=== PATIENT | male | born 1975 | race Hispanic/Latino ===

== ENCOUNTER 2017-10-14 11:05 | Emergency (ER) | payer OTHER, SELFPAY ==
--- NOTE | 2017-10-14 12:16 | RAD REPORT ---
EXAM DESCRIPTION: CT - Ct Stroke Brain Wo Cont - 10/14/2017 12:06 pm CLINICAL HISTORY: Left arm numbness and weakness, stroke-like symptoms, history of prior CVA CLINICAL HISTORY: None. TECHNIQUE: Axial 5 millimeter thick images of the head were obtained without IV contrast. All CT scans are performed using dose optimization technique as appropriate and may include automated exposure control or mA/KV adjustment according to patient size. FINDINGS: No intracranial hemorrhage, mass, or cerebral edema. No acute cortical based infarction se en. No cortical edema or sulcal effacement. Diminished attenuation is seen in the left basal ganglia head of the caudate region from old CVA. A small area of diminished attenuation is present adjacent t o the frontal horn right lateral ventricle. No extra-axial fluid collections. Akins matter-white stephane er differentiation is preserved. Visualized portions of the mastoid air cells, paranasal sinuses, and orbits are unremarkable. Findings telephoned to the referring physician 12:11 p.m. IMPRESSION: No intracranial hemorrhage. No acute cortical based infarction identifiable. Old infarction changes are present in the bilateral basal ganglia head of the caudate regions. Ongoing clinical concerns for nonhemorrhagic CVA could be addressed with MR imaging.
[2017-10-14 12:47] LABS: Absolute Lymphocytes (CBC) 2.5 K/uL (0.7-4.9); Absolute Monocytes 0.7 K/uL (0.1-1.3); Absolute Neutrophil 5.7 K/uL (1.8-8.0); Basophils % 0.4 % (0-1.3); Eosinophils % 2.7 % (0-4.4); Hematocrit 43.8 % (39.6-49.0); Lymphocytes % 27.4 % (15.3-44.8); MCH 29.1 pg (27.0-35.0); MPV 11.4 fL (7.6-11.3); Monocytes % 7.5 % (3.3-12.3); RBC Red Blood Cell Count 4.92 M/uL (4.33-5.43)
--- NOTE | 2017-10-14 13:08 | RAD REPORT ---
EXAM DESCRIPTION: RAD - Chest Single View - 10/14/2017 12:50 pm CLINICAL HISTORY: Stroke chest film COMPARISON: March 2016 TECHNIQUE: AP portable chest image was obtained 1242 hours . FINDINGS: No failure, mass or focal infiltrate. Lung markings are similar to comparison. Heart and v asculature are normal. No measurable pleural effusion and no pneumothorax. No gross bony abnormality seen. No acute aortic findings suspected. IMPRESSION: No acute cardiopulmonary process. No significant interval change.
--- NOTE | 2017-10-14 13:19 | EKG ---
Test Date: 2017-10-14 Test Time: 12:12:22 Cotton Expert: CHAVEZ MEASUREMENT RESULTS: Intervals: Rate: 66 [place]: 186 QRSD: 88 QT: 390 QTc: 408 [place]: P: 42 [place]: 186 QRS: -10 T: 33 INTERPRETIVE STATEMENTS: Normal sinus rhythm Normal ECG Compared to ECG 03/27/2016 11:34:45 No significant changes Electronically Signed On 10-14-17 13:18:44 CDT by Giovanny Koch
[2017-10-14 13:38] LABS: Urine Blood NEGATIVE (NEG); Urine Glucose NEGATIVE (NEG); Urine Protein NEGATIVE (NEG); Urine Specific Gravity <1.005 (1.005-1.030)
--- NOTE | 2017-10-14 13:43 | ER ---
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 ;Left arm weakness Presentation: 10/14 11:15 Presenting complaint: Patient states: Saturday my left arm went numb and had numbness iw in fingertips, has had previous CVA X 4 years ago and TIA a year ago, states left arm has not been the same since Saturday, has had problem gripping stuff since Saturday. Transition of care: patient was not received from another setting of care. Onset of symptoms was October 09, 2017. Risk Assessment: Do you want to hurt yourself or someone else? Patient reports no desire to harm self or others. Initial Sepsis Screen: Does the patient meet any 2 criteria? No. Patient's initial sepsis screen is negative. Does the patient have a suspected source of infection? No. Patient's initial sepsis screen is negative. Care prior to arrival: None. 11:15 Method Of Arrival: Ambulatory iw 11:15 Acuity: FAISAL 3 iw Triage Assessment: 19:41 General: Appears in no apparent distress. uncomfortable, Behavior is calm, cooperative, ch appropriate for age. Historical: - Allergies: 11:20 No Known Allergies; iw - Home Meds: 11:20 Plavix 75 mg Oral tab 1 tab once daily [Active]; atorvastatin oral oral [Active]; iw Vitamin B-12 Oral [Active]; Vitamin B-6 Oral [Active]; Folic Acid Oral [Active]; vitamin E Oral [Active]; Vitamin C Oral [Active]; lisinopril 10 mg Oral tab 2 tabs once daily [Active]; - PMHx: 11:20 CVA x3; Hypertension; TIA; iw - PSHx: 11:20 right knee; left ankle; iw - Immunization history:: Adult Immunizations not up to date. - Social history:: Smoking status: Patient/guardian denies using tobacco. - Ebola Screening: : Patient negative for fever greater than or equal to 101.5 degrees Fahrenheit, and additional compatible Ebola Virus Disease symptoms Patient denies exposure to infectious person Patient denies travel to an Ebola-affected area in the 21 days before illness onset No symptoms or risks identified at this time. Screenin:00 Abuse screen: Denies threats or abuse. Denies injuries from another. Nutritional ch screening: No deficits noted. Tuberculosis screening: No symptoms or risk factors identified. Fall Risk None identified. Assessment: 11:20 General: Appears in no apparent distress. comfortable, Behavior is calm, cooperative, ch appropriate for age. 11:20 Pain: Denies pain. Neuro: Level of Consciousness is awake, alert, obeys commands, ch Oriented to person, place, time, situation, Entry Level Programmer are equal bilaterally Moves all extremities. Full function Gait is steady, Speech is normal, Facial symmetry appears normal, Facial symmetry: tongue is midline, Pupils are PERRLA, Reports weakness in left hand. Respiratory: Airway is patent is compromised Trachea midline Respiratory effort is even, unlabored, Respiratory pattern is regular. GI: No signs and/or symptoms were reported involving the gastrointestinal system. Abdomen is flat, non-distended, Bowel sounds present X 4 quads. Abd is soft and non tender X 4 quads. Derm: Skin is pink, warm \T\ dry. Musculoskeletal: Circulation, motion, and sensation intact. Capillary refill < 3 seconds, in bilateral fingers. toes. Range of motion: intact in all extremities. 13:00 Reassessment: Patient appears in no apparent distress at this time. No changes from previously documented assessment. Patient and/or family updated on plan of care and expected duration. Pain level reassessed. Patient is alert, oriented x 3, equal unlabored respirations, skin warm/dry/pink. 14:00 Reassessment: Patient appears in no apparent distress at this time. No changes from previously documented assessment. Patient and/or family updated on plan of care and expected duration. Pain level reassessed. Patient is alert, oriented x 3, equal unlabored respirations, skin warm/dry/pink. Patient denies pain at this time. Patient states feeling better. Vital Signs: 11:20 BP 138 / 86; Pulse 73; Resp 16 S; Temp 97.9; Pulse Ox 97% on R/A; Weight 113.4 kg; iw Height 6 ft. 1 in. (185.42 cm); Pain 0/10; 14:00 BP 116 / 68; Pulse 71; Resp 16; Temp 98.3; Pulse Ox 99% on R/A; Pain 0/10; ch 11:20 Body Mass Index 32.98 (113.40 kg, 185.42 cm) ED Course: 11:10 Patient arrived in ED. mr 11:10 None, None is Private Physician. mr 11:19 Triage completed. iw 11:20 Arm band placed on. iw 11:22 Perry Benítez MD is Attending Physician. ps1 12:06 CT Stroke Brain w/o Contrast In Process Unspecified. EDMS 12:20 Fidelia Flores, RN is Primary Nurse. ch 12:26 EKG done, by electrical technology instructor. reviewed by Perry Benítez MD. at1 12:44 X-ray completed. Portable x-ray completed in exam room. Patient tolerated procedure kp1 well. 12:45 Stroke CXR 1 View In Process Unspecified. EDMS 13:13 Inserted saline lock: 20 gauge in right antecubital area, using aseptic technique. ag Blood collected. 13:15 Urine Microscopic Only Sent. ag 14:00 Patient has correct armband on for positive identification. Placed in gown. Bed in low ch position. Call light in reach. Side rails up X 1. Adult w/ patient. groundwater monitoring technician on. Pulse ox on. NIBP on. Warm blanket given. 14:10 No apparent distress. Resting quietly. ch 14:10 No provider procedures requiring assistance completed. IV discontinued, intact, ch bleeding controlled, No redness/swelling at site. Pressure dressing applied. Administered Medications: No medications were administered Outcome: 13:42 Discharge ordered by . ps1 14:10 Discharged to home ambulatory, with family. ch 14:10 Condition: stable 14:10 Discharge instructions given to patient, family, Instructed on discharge instructions, follow up and referral plans. Demonstrated understanding of instructions, follow-up care. 14:14 Patient left the ED. dm5 Signatures: Dispatcher [employer] EDMS Fidelia Flores, RN KELSIE Shannon Guerra, RN RN dm5 Chikis Marx, Aisha, RN RN Violeta dorado, residence hall director EKG Tat1 James, Alayna ag Knapp, Pratibha kp1 Perry Benítez MD MD ps1
--- NOTE | 2017-10-14 13:43 | EDPHYS ---
Physician Documentation [facility] Name: Bartolo Phelps Age: 42 yrs Sex: Male : 1975 Arrival Date: 10/14/2017 Time: 11:10 Bed 14 Private MD: None, None ED Physician Perry Benítez HPI: 10/14 13:43 This 42 yrs old Male presents to ER via Ambulatory with complaints of Numbness ps1 Of Arm. 13:43 The patient or guardian complains of weakness, previous CVA. The complaints affect the ps1 left hand. Pt with history of CVA 4 years ago. Under care of neurologist at [facility]. 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 He states that he went back to work and was recently exposed to heat as it was hot > 100 degrees ambient in [place] the last couple of days. He started to have increased weakness in the affected hand that he described as 20% function which started 3 days ago. He states that his symptoms have got better since and has nearly returned to his baseline. . Historical: - Allergies: 11:20 No Known Allergies; iw - Home Meds: 11:20 Plavix 75 mg Oral tab 1 tab once daily [Active]; atorvastatin oral oral [Active]; iw Vitamin B-12 Oral [Active]; Vitamin B-6 Oral [Active]; Folic Acid Oral [Active]; vitamin E Oral [Active]; Vitamin C Oral [Active]; lisinopril 10 mg Oral tab 2 tabs once daily [Active]; - PMHx: 11:20 CVA x3; Hypertension; TIA; iw - PSHx: 11:20 right knee; left ankle; iw - Immunization history:: Adult Immunizations not up to date. - Social history:: Smoking status: Patient/guardian denies using tobacco. - Ebola Screening: : Patient negative for fever greater than or equal to 101.5 degrees Fahrenheit, and additional compatible Ebola Virus Disease symptoms Patient denies exposure to infectious person Patient denies travel to an Ebola-affected area in the 21 days before illness onset No symptoms or risks identified at this time. ROS: 13:43 Constitutional: Negative for fever, chills, and weight loss, Eyes: Negative for injury, ps1 pain, redness, and discharge, ENT: Negative for injury, pain, and discharge, Cardiovascular: Negative for chest pain, palpitations, and edema, Respiratory: Negative for shortness of breath, cough, wheezing, and pleuritic chest pain, Abdomen/GI: Negative for abdominal pain, nausea, vomiting, diarrhea, and constipation, Back: Negative for injury and pain, MS/Extremity: Negative for injury and deformity, Skin: Negative for injury, rash, and discoloration. 13:43 Neuro: Positive for weakness, of the left hand. Exam: 13:43 Constitutional: This is a well developed, well nourished patient who is awake, alert, ps1 and in no acute distress. Head/Face: Normocephalic, atraumatic. Eyes: Pupils equal round and reactive to light, extra-ocular motions intact. Lids and lashes normal. Conjunctiva and sclera are non-icteric and not injected. ENT: Nares patent. No nasal discharge, no septal abnormalities noted. Tympanic membranes are normal and external auditory canals are clear. Oropharynx with no redness, swelling, or masses, exudates, or evidence of obstruction, uvula midline. Mucous membranes moist. Chest/axilla: Normal chest wall appearance and motion. Nontender with no deformity. No lesions are appreciated. Cardiovascular: Regular rate and rhythm. No gallops, murmurs, or rubs. Normal PMI, no JVD. No pulse deficits. Respiratory: Lungs have equal breath sounds bilaterally, clear to auscultation and percussion. No rales, rhonchi or wheezes noted. No increased work of breathing, no retractions or nasal flaring. Abdomen/GI: Soft, non-tender, with normal bowel sounds. No distension or tympany. No guarding or rebound. No evidence of tenderness throughout. Skin: Warm, dry with normal turgor. Normal color with no rashes, no lesions, and no evidence of cellulitis. MS/ Extremity: Pulses equal, no cyanosis. Neurovascular intact. Full, normal range of motion. Neuro: Awake and alert, GCS 15, oriented to person, place, time, and situation. Cranial nerves II-XII grossly intact. Sensory grossly intact. 13:43 Neuro: Motor: moves all fours, has weakness in left hand as compared to right. . Vital Signs: 11:20 BP 138 / 86; Pulse 73; Resp 16 S; Temp 97.9; Pulse Ox 97% on R/A; Weight 113.4 kg; iw Height 6 ft. 1 in. (185.42 cm); Pain 0/10; 14:00 BP 116 / 68; Pulse 71; Resp 16; Temp 98.3; Pulse Ox 99% on R/A; Pain 0/10; ch 11:20 Body Mass Index 32.98 (113.40 kg, 185.42 cm) iw MDM: 11:47 Patient medically screened. ps1 13:48 Data reviewed: vital signs, nurses notes, lab test result(s), radiologic studies. ED ps1 course: has CT findings consistent with his history. His subjective deficits are within the same distribution of his previous CVA. He is outside the window for intervention. He is to see his neurologist for further diagnostic workup including MRI outpatient. This seems consistent with reexpression of his previous stroke from physiologic stress. This may be a subacute finding however and further diagnostic workup with his neurologist is recommended. Labs and imaging negative for acute findings otherwise. . 10/14 11:46 Order name: Basic Metabolic Panel; Complete Time: 13:03 ps1 10/14 11:46 Order name: CBC with Diff; Complete Time: 13:03 ps1 10/14 11:46 Order name: Urine Microscopic Only; Complete Time: 13:52 ps1 10/14 11:46 Order name: CT Stroke Brain w/o Contrast; Complete Time: 12:22 ps1 10/14 11:46 Order name: Stroke CXR 1 View; Complete Time: 13:18 ps1 10/14 13:24 Order name: Urine Dipstick--Ancillary (enter results); Complete Time: 13:40 bd 10/14 11:46 Order name: EKG; Complete Time: 11:47 ps1 10/14 11:46 Order name: Accucheck; Complete Time: 13:15 ps1 10/14 11:46 Order name: Cardiac monitoring; Complete Time: 13:15 ps1 10/14 11:46 Order name: EKG - Nurse/Tech ps1 10/14 11:46 Order name: IV Saline Lock; Complete Time: 13:15 ps1 10/14 11:46 Order name: Labs collected and sent; Complete Time: 13:14 ps1 10/14 11:46 Order name: NPO; Complete Time: 13:14 ps1 10/14 11:46 Order name: O2 Per Protocol; Complete Time: 13:14 ps1 10/14 11:46 Order name: O2 Sat Monitoring; Complete Time: 13:14 ps1 10/14 11:46 Order name: Stroke Swallow Screen ps1 10/14 11:46 Order name: Urine Dipstick-Ancillary (obtain specimen); Complete Time: 13:15 ps1 Administered Medications: No medications were administered Disposition: 10/14/17 13:42 Discharged to Home. 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 , Left arm weakness. - Condition is Stable. - Discharge Instructions: Stroke Prevention, [place]. - Medication Reconciliation Form, Thank You Letter, Antibiotic Education, Prescription Opioid Use form. - Follow up: Private Physician; When: this week; Reason: Further diagnostic work-up, Recheck today's complaints, Re-evaluation by your physician, Your Neurologist. Follow up: Emergency Department; When: As needed; Reason: Worsening of condition. Signatures: Dispatcher [employer] EDShannon Mehta RN RN dm5 Aisha Ruiz RN RN iw Perry Benítez MD MD ps1 Corrections: (The following items were deleted from the chart) 14:14 13:42 10/14/2017 13:42 Discharged to Home. Impression: Reexpression phenomena from dm5 previous CVA. ; Left arm weakness. Condition is Stable. Forms are Medication Reconciliation Form, Thank You Letter, Antibiotic Education, Prescription Opioid Use. Follow up: Private Physician; When: this week; Reason: Further diagnostic work-up, Recheck today's complaints, Re-evaluation by your physician, Your Neurologist. Follow up: Emergency Department; When: As needed; Reason: Worsening of condition. ps1
[2017-10-14 13:49] LABS: Urine Bacteria NONE SEEN /HPF (NONE SEEN); Urine Culture Reflex Order NOT NEEDED; Urine RBC NONE SEEN /HPF (NONE SEEN)
[2017-10-14 14:17] VITALS: BP 138/86; TEMP 97.9; O2SAT 97
== END 2017-10-14 14:14 | disposition home or self-care (01) ==
LOC: ER 11:05
DX: I69.354 Hemiplegia and hemiparesis following cerebral infarction affecting left non-dominant side (principal); I10 Essential (primary) hypertension
CPT/HCPCS: 36415; 70450; 71045; 80048; 81003; 81015; 85025; 93005; 99284

== ENCOUNTER 2018-01-17 14:52 | Emergency (ER) | payer OTHER ==
[2018-01-17] MEDS ORDERED: NA CHLORIDE 0.9% 1,000 ML ONE (15:25)
[2018-01-17] MEDS ORDERED: DIPHENHYDRAMINE 25 MG TAB/CAP ONE (15:25)
[2018-01-17] MEDS ORDERED: DEXAMETHASONE 4 MG/ML VIAL ONE (15:25)
[2018-01-17] MEDS ORDERED: FAMOTIDINE 20 MG/2 ML VIAL IV ONE (15:25)
--- NOTE | 2018-01-17 17:21 | EDPHYS ---
Physician Documentation [facility] Name: Bartolo Phelps Age: 42 yrs Sex: Male : 1975 Arrival Date: 01/17/2018 Time: 14:53 Bed 6 Private MD: ED Physician Holden Thibodeaux HPI: 01/17 15:04 This 42 yrs old Male presents to ER via Ambulatory with complaints of Bee jmm Sting. 15:04 The patient was bitten on the left arm. Onset: The symptoms/episode began/occurred jmm acutely, 15 minute(s) ago. Animal information: wasp. Associated signs and symptoms: Pertinent positives: erythema at site, swelling at site. This is a 42 year old male with a history of CVA that presents to the ED with left arm erythema dn erythema to the chest following an insect sting. Patient states he was stung by a wasp. patient denies vomiting or shortness of breath. Historical: - Allergies: 15:05 Bees; aj - Home Meds: 15:05 gabapentin oral oral [Active]; Plavix Oral [Active]; Lisinopril Oral [Active]; aj - PMHx: 15:05 CVA x3; Hypertension; TIA; aj - PSHx: 15:05 right knee; left ankle; aj - Immunization history:: Adult Immunizations up to date. - Social history:: Smoking status: Patient uses tobacco products, chewing tobacco. - Ebola Screening: : Patient negative for fever greater than or equal to 101.5 degrees Fahrenheit, and additional compatible Ebola Virus Disease symptoms Patient denies exposure to infectious person Patient denies travel to an Ebola-affected area in the 21 days before illness onset No symptoms or risks identified at this time. ROS: 15:05 Constitutional: Negative for fever, chills, and weight loss. jmm 15:05 Cardiovascular: Negative for chest pain, palpitations, and edema, Respiratory: Negative jm for shortness of breath, cough, wheezing, and pleuritic chest pain, Abdomen/GI: Negative for abdominal pain, nausea, vomiting, diarrhea, and constipation. 15:05 Constitutional: 15:05 Skin: Positive for rash, swelling. 15:05 All other systems are negative. Exam: 15:05 Head/Face: atraumatic. jmm 15:05 Constitutional: The patient appears in no acute distress, alert, awake. 15:05 ENT: Posterior pharynx: is normal, airway is patent, No pharyngeal edema appreciated. 15:05 Neck: ROM/movement: is normal. 15:05 Chest/axilla: Inspection: rash, of the left clavicle, anterior aspect of left upper chest and left breast 15:05 Cardiovascular: Rate: normal, Rhythm: regular, Pulses: no pulse deficits are appreciated. 15:05 Respiratory: the patient does not display signs of respiratory distress, Respirations: normal, Breath sounds: are clear throughout. 15:05 Abdomen/GI: Inspection: abdomen appears normal, Bowel sounds: normal, Palpation: abdomen is soft and non-tender. 15:05 Musculoskeletal/extremity: ROM: intact in all extremities. 15:05 Skin: erythema noted to the left arm and the chest. 15:05 Neuro: Orientation: is normal, Mentation: is normal, Memory: is normal. 15:05 Psych: Behavior/mood is pleasant, cooperative. Vital Signs: 15:05 BP 135 / 75; Pulse 92; Resp 16; Temp 98.1; Pulse Ox 96% on R/A; Weight 108.86 kg; aj Height 6 ft. 1 in. (185.42 cm); 15:20 BP 149 / 90; Pulse 65; Resp 18; Temp 98.5; Pulse Ox 99% on R/A; Pain 5/10; ch 16:25 BP 140 / 78; Pulse 72; Resp 15; Temp 98.8; Pulse Ox 99% on R/A; Pain 0/10; ch 16:54 BP 123 / 63; Pulse 74; Resp 15; Temp 98.3; Pulse Ox 99% on R/A; Pain 0/10; ch 15:05 Body Mass Index 31.66 (108.86 kg, 185.42 cm) aj MDM: 15:04 Patient medically screened. [facility] 15:05 Data reviewed: vital signs, nurses notes. [facility] 17:19 Response to treatment: the patient's symptoms have markedly improved after treatment. [facility] 18:39 Counseling: I had a detailed discussion with the patient and/or guardian regarding: the [facility] historical points, exam findings, and any diagnostic results supporting the discharge/admit diagnosis, the presence of at least one elevated blood pressure reading (>120/80) during this emergency department visit, radiology results, the need for outpatient follow up, to return to the emergency department if symptoms worsen or persist or if there are any questions or concerns that arise at home. 01/17 15:05 Order name: Saline Lock; Complete Time: 15:32 [facility] Administered Medications: 15:20 Drug: Decadron - Dexamethasone 10 mg Route: IVP; Site: right forearm; ch 15:39 Follow up: Response: No adverse reaction; Marked relief of symptoms ch 15:24 Drug: Pepcid 20 mg Route: IVP; Site: right forearm; ch 15:39 Follow up: Response: No adverse reaction ch 15:26 Drug: Benadryl 50 mg Route: PO; ch 15:39 Follow up: Response: No adverse reaction ch 15:30 Drug: NS 0.9% 1000 ml Route: IV; Rate: 1 bolus; Site: right forearm; 16:00 Follow up: IV Status: Completed infusion; IV Intake: 1000ml ch Disposition: 18:18 Co-signature as Attending Physician, Holden Thibodeaux MD I agree with the assessment and kdr plan of care. Disposition: 01/17/18 17:20 Discharged to Home. Impression: Wasp Sting. - Condition is Stable. - Discharge Instructions: Bee, Wasp, or Hornet Sting, Adult. - Prescriptions for Cephalexin 500 mg Oral Capsule - take 1 capsule by ORAL route every 6 hours for 5 days; 20 capsule. Prednisone 20 mg Oral Tablet - take 3 tablet by ORAL route once daily for 5 days; 15 tablet. EpiPen 0.3 mg Injection auto- injector - inject 1 pen by INTRAMUSCULAR route as directed Inject into the outer portion of the thigh, through clothing if necessary. Indicated in the emergency treatment of allergic reactions; 1 unit. - Medication Reconciliation Form, Thank You Letter, Antibiotic Education, Prescription Opioid Use form. - Follow up: Private Physician; When: 2 - 3 days; Reason: Recheck today's complaints, Continuance of care, Re-evaluation by your physician. Signatures: Fidelia Flores RN RN ch Myers, Amanda, RN RN aj Rittger, Kevin, MD MD kdr Mickail, Joel, PA PA jmm Corrections: (The following items were deleted from the chart) 16:24 15:04 This is a 42 year old male with a history of CVA that presents to the ED with jmm left arm erythema dn erythema to the chest following an insect sting. Patient states he was stung by a wasp. chioma 17:37 17:20 01/17/2018 17:20 Discharged to Home. Impression: Wasp Sting. Condition is Stable. ch Forms are Medication Reconciliation Form, Thank You Letter, Antibiotic Education, Prescription Opioid Use. Follow up: Private Physician; When: 2 - 3 days; Reason: Recheck today's complaints, Continuance of care, Re-evaluation by your physician. chioma
--- NOTE | 2018-01-17 17:21 | ER ---
Nurse's Notes [facility] Name: Bartolo Phelps Age: 42 yrs Sex: Male : 1975 Arrival Date: 01/17/2018 Time: 14:53 Bed 6 Private MD: Diagnosis: Wasp Sting Presentation: 01/17 15:03 Presenting complaint: Patient states: Stung by a wasp on left posterior upper arm just aj [employer]. Transition of care: patient was not received from another setting of care. Onset: The symptoms/episode began/occurred acutely. Anaphylaxis evaluation, no signs or symptoms of anaphylaxis were noted. Onset of symptoms was January 17, 2018. Risk Assessment: Do you want to hurt yourself or someone else? Patient reports no desire to harm self or others. Initial Sepsis Screen: Does the patient meet any 2 criteria? No. Patient's initial sepsis screen is negative. Does the patient have a suspected source of infection? No. Patient's initial sepsis screen is negative. Care prior to arrival: None. 15:03 Method Of Arrival: Ambulatory 15:03 Acuity: FAISAL 2 aj Triage Assessment: 15:05 General: Appears in no apparent distress. comfortable, Behavior is calm, cooperative, aj appropriate for age. Pain: Complains of pain in left tricep. Neuro: Level of Consciousness is awake, alert, obeys commands, Oriented to person, place, time, situation, Appropriate for age. Respiratory: Airway is patent Respiratory effort is even, unlabored, Respiratory pattern is regular, symmetrical. Derm: Skin is intact, is healthy with good turgor, Skin is pink, warm \T\ dry. normal. Injury Description: Bite sustained to left tricep caused by a wasp, is from insect was sustained less than 30 minutes ago. Historical: - Allergies: 15:05 Bees; aj - Home Meds: 15:05 gabapentin oral oral [Active]; Plavix Oral [Active]; Lisinopril Oral [Active]; aj - PMHx: 15:05 CVA x3; Hypertension; TIA; aj - PSHx: 15:05 right knee; left ankle; aj - Immunization history:: Adult Immunizations up to date. - Social history:: Smoking status: Patient uses tobacco products, chewing tobacco. - Ebola Screening: : Patient negative for fever greater than or equal to 101.5 degrees Fahrenheit, and additional compatible Ebola Virus Disease symptoms Patient denies exposure to infectious person Patient denies travel to an Ebola-affected area in the 21 days before illness onset No symptoms or risks identified at this time. Screenin:20 Abuse screen: Denies threats or abuse. Denies injuries from another. Nutritional ch screening: No deficits noted. Tuberculosis screening: No symptoms or risk factors identified. Fall Risk None identified. Assessment: 15:20 General: Appears in no apparent distress. comfortable, Behavior is cooperative, ch appropriate for age, anxious. Pain: Complains of pain in left bicep and left tricep Pain currently is 5 out of 10 on a pain scale. Pain began suddenly. Neuro: No deficits noted. Cardiovascular: Heart tones S1 S2 present. Respiratory: Reports pt states he feels like his throat and mouth are scratchy. Airway is patent Respiratory effort is even, unlabored, Breath sounds are clear bilaterally. 15:20 GI: No signs and/or symptoms were reported involving the gastrointestinal system. Derm: Skin is pink, warm \T\ dry. pt has area of redness and swelling approx 25 cm diameter to L arm. Musculoskeletal: No signs and/or symptoms reported regarding the musculoskeletal system. 16:25 Reassessment: Patient appears in no apparent distress at this time. Patient and/or family updated on plan of care and expected duration. Pain level reassessed. Patient is alert, oriented x 3, equal unlabored respirations, skin warm/dry/pink. pt still has redness to L upper arm, and redness to chest. no s/s of distress. Patient states feeling better. Patient states symptoms have improved. 17:33 Reassessment: Patient appears in no apparent distress at this time. No changes from previously documented assessment. Patient and/or family updated on plan of care and expected duration. Pain level reassessed. Patient is alert, oriented x 3, equal unlabored respirations, skin warm/dry/pink. Patient denies pain at this time. Patient states feeling better. Patient states symptoms have improved. Vital Signs: 15:05 BP 135 / 75; Pulse 92; Resp 16; Temp 98.1; Pulse Ox 96% on R/A; Weight 108.86 kg; aj Height 6 ft. 1 in. (185.42 cm); 15:20 BP 149 / 90; Pulse 65; Resp 18; Temp 98.5; Pulse Ox 99% on R/A; Pain 5/10; ch 16:25 BP 140 / 78; Pulse 72; Resp 15; Temp 98.8; Pulse Ox 99% on R/A; Pain 0/10; ch 16:54 BP 123 / 63; Pulse 74; Resp 15; Temp 98.3; Pulse Ox 99% on R/A; Pain 0/10; ch 15:05 Body Mass Index 31.66 (108.86 kg, 185.42 cm) ED Course: 14:53 Patient arrived in ED. sb2 15:01 Eric Leal PA is PHCP. jm 15:01 Holden Thibodeaux MD is Attending Physician. jmm 15:04 Triage completed. aj 15:05 Arm band placed on left wrist. Patient placed in an exam room. aj 15:17 Fidelia Flores, RN is Primary Nurse. ch 15:20 Patient has correct armband on for positive identification. Bed in low position. Call ch light in reach. Side rails up X 1. Adult w/ patient. Pulse ox on. NIBP on. Warm blanket given. 15:20 No provider procedures requiring assistance completed. Inserted saline lock: 20 gauge ch in right forearm, using aseptic technique. 17:33 No apparent distress. Resting quietly. ch 17:33 IV discontinued, intact, bleeding controlled, No redness/swelling at site. Pressure ch dressing applied. Administered Medications: 15:20 Drug: Decadron - Dexamethasone 10 mg Route: IVP; Site: right forearm; ch 15:39 Follow up: Response: No adverse reaction; Marked relief of symptoms ch 15:24 Drug: Pepcid 20 mg Route: IVP; Site: right forearm; ch 15:39 Follow up: Response: No adverse reaction ch 15:26 Drug: Benadryl 50 mg Route: PO; ch 15:39 Follow up: Response: No adverse reaction ch 15:30 Drug: NS 0.9% 1000 ml Route: IV; Rate: 1 bolus; Site: right forearm; ch 16:00 Follow up: IV Status: Completed infusion; IV Intake: 1000ml ch Intake: 16:00 IV: 1000ml; Total: 1000ml. ch Outcome: 17:20 Discharge ordered by . [facility] 17:33 Discharged to home ambulatory, with family. 17:33 Condition: stable 17:33 Discharge instructions given to patient, family, Instructed on discharge instructions, follow up and referral plans. medication usage, Demonstrated understanding of instructions, follow-up care, medications, Prescriptions given X 3. 17:37 Patient left the ED. Signatures: Fidelia Flores, RN Vioelta Angulo ch, RN RN aj Mickail, Joel, PA PA jmm Billeau, Sheri sb2
[2018-01-17 18:04] VITALS: O2SAT 99
[2018-01-17 18:08] VITALS: BP 123/63; TEMP 98.3
== END 2018-01-17 17:37 | disposition home or self-care (01) ==
LOC: ER 14:52
DX: R21 Rash and other nonspecific skin eruption (principal); W57.XXXA Bitten or stung by nonvenomous insect and other nonvenomous arthropods, initial encounter; Y93.9 Activity, unspecified; Y92.9 Unspecified place or not applicable; I10 Essential (primary) hypertension; Z79.01 Long term (current) use of anticoagulants; Z86.73 Personal history of transient ischemic attack (TIA), and cerebral infarction without residual deficits; Z91.030 Bee allergy status
CPT/HCPCS: 96374; 96375; 99284; J7030

== ENCOUNTER 2018-05-05 22:11 | Emergency (ER) | payer OTHER ==
[2018-05-05] MEDS ORDERED: HYDROCODONE/APAP 7.5/325 MG TAB ONE (23:07)
--- NOTE | 2018-05-05 23:47 | EDPHYS ---
Physician Documentation [facility] Name: Bartolo Phelps Age: 43 yrs Sex: Male : 1975 Arrival Date: 05/05/2018 Time: 22:14 Bed 13 Private MD: ED Physician Duglas Dela Cruz HPI: 05/05 22:52 This 43 yrs old Male presents to ER via Wheelchair with complaints of Fall pkl Injury, Foot Injury. 22:52 The patient presents with an injury. The complaints affect the right foot. Context: pkl resulted from the patient falling, Patient fell 2 days ago and again tonight injuring the right foot. Historical: - Allergies: 22:19 Bees; jb4 - Home Meds: 22:19 gabapentin Oral [Active]; lisinopril Oral [Active]; Plavix Oral [Active]; jb4 - PMHx: 22:19 CVA x3; Hypertension; TIA; jb4 - PSHx: 22:19 None; jb4 - Immunization history:: Adult Immunizations up to date, Flu vaccine is up to date. - Social history:: Smoking status: Patient uses tobacco products, chewing tobacco, Patient uses alcohol, but reports only rare drinking. - Ebola Screening: : No symptoms or risks identified at this time. ROS: 22:52 MS/extremity: Positive for injury or acute deformity, pain, of the right foot. pkl 22:52 Eyes: Negative for injury, pain, redness, and discharge, ENT: Negative for injury, pain, and discharge, Neck: Negative for injury, pain, and swelling, Cardiovascular: Negative for chest pain, palpitations, and edema, Respiratory: Negative for shortness of breath, cough, wheezing, and pleuritic chest pain, Abdomen/GI: Negative for abdominal pain, nausea, vomiting, diarrhea, and constipation, Back: Negative for injury and pain, : Negative for injury, bleeding, discharge, and swelling, Skin: Negative for injury, rash, and discoloration, Neuro: Negative for headache, weakness, numbness, tingling, and seizure. Exam: 22:52 Head/Face: Normocephalic, atraumatic. Eyes: Pupils equal round and reactive to light, pkl extra-ocular motions intact. Lids and lashes normal. Conjunctiva and sclera are non-icteric and not injected. Cornea within normal limits. Periorbital areas with no swelling, redness, or edema. ENT: Nares patent. No nasal discharge, no septal abnormalities noted. Tympanic membranes are normal and external auditory canals are clear. Oropharynx with no redness, swelling, or masses, exudates, or evidence of obstruction, uvula midline. Mucous membranes moist. Neck: Trachea midline, no thyromegaly or masses palpated, and no cervical lymphadenopathy. Supple, full range of motion without nuchal rigidity, or vertebral point tenderness. No Meningismus. Chest/axilla: Normal chest wall appearance and motion. Nontender with no deformity. No lesions are appreciated. Cardiovascular: Regular rate and rhythm with a normal S1 and S2. No gallops, murmurs, or rubs. Normal PMI, no JVD. No pulse deficits. Respiratory: Lungs have equal breath sounds bilaterally, clear to auscultation and percussion. No rales, rhonchi or wheezes noted. No increased work of breathing, no retractions or nasal flaring. Abdomen/GI: Soft, non-tender, with normal bowel sounds. No distension or tympany. No guarding or rebound. No evidence of tenderness throughout. Back: No spinal tenderness. No costovertebral tenderness. Full range of motion. Skin: Warm, dry with normal turgor. Normal color with no rashes, no lesions, and no evidence of cellulitis. Neuro: Awake and alert, GCS 15, oriented to person, place, time, and situation. Cranial nerves II-XII grossly intact. Motor strength 5/5 in all extremities. Sensory grossly intact. Cerebellar exam normal. Normal gait. 22:52 Musculoskeletal/extremity: Extremities: grossly normal except: noted in the lateral aspect mid section right foot: pain, swelling, tenderness. Vital Signs: 22:19 BP 133 / 75; Pulse 85; Resp 16; Temp 98.7(O); Pulse Ox 100% on R/A; Weight 108.86 kg jb4 (R); Height 6 ft. 1 in. (185.42 cm) (R); Pain 9/10; 23:15 BP 124 / 70; Pulse 89; Resp 16; Pulse Ox 98% on R/A; jb4 05/06 00:15 BP 113 / 59; Pulse 89; Resp 16; Pulse Ox 100% ; jb4 05/05 22:19 Body Mass Index 31.66 (108.86 kg, 185.42 cm) jb4 Procedures: 05/05 23:44 Splinting: Splint applied to right foot using short leg posterior splint. applied by [facility] tech. Examined by me, post splint application: neurovascular intact, 2+ distal pulses palpable, brisk capillary refill noted, Patient tolerated well. MDM: 22:19 Patient medically screened. pkl 23:44 Data reviewed: vital signs, nurses notes, radiologic studies, plain films. [facility] 05/05 22:51 Order name: Foot Right 3 View XRAY [facility] 05/05 23:44 Order name: Splint Leg: Short Leg; Complete Time: 23:52 pk Administered Medications: 23:01 Drug: [place] (7.5 mg-325 mg) 1 tabs Route: PO; jb4 05/06 00:15 Follow up: Response: No adverse reaction; Pain is unchanged, physician notified jb4 00:20 Drug: Demerol 50 mg Route: IM; Site: right deltoid; jb4 00:37 Follow up: Response: No adverse reaction jb4 00:20 Drug: Phenergan 12.5 mg Route: IM; Site: right deltoid; jb4 00:37 Follow up: Response: No adverse reaction jb4 Disposition: 05/05/18 23:47 Discharged to Home. Impression: Fracture base right 5th meta-tarsal. - Condition is Stable. - Prescriptions for Ultram 50 mg Oral Tablet - take 1 tablet by ORAL route every 8 hours As needed; 30 tablet. - Medication Reconciliation Form, Thank You Letter, Antibiotic Education, Prescription Opioid Use form. - Follow up: Bartolo Chaney MD; When: 2 - 3 days; Reason: Re-evaluation by your physician. - Problem is new. - Symptoms have improved. Signatures: Dispatcher [employer] Duglas Mar MD MD pkl Barrie Sanford, RN RN jb4 Corrections: (The following items were deleted from the chart) 05/05 23:52 23:44 Crutches ordered. [facility] 05/06 00:41 05/05 23:47 05/05/2018 23:47 Discharged to Home. Impression: Fracture base right 5th jb4 meta-tarsal. Condition is Stable. Forms are Medication Reconciliation Form, Thank You Letter, Antibiotic Education, Prescription Opioid Use. Follow up: Bartolo Chaney; When: 2 - 3 days; Reason: Re-evaluation by your physician. Problem is new. Symptoms have improved. pkl
--- NOTE | 2018-05-05 23:47 | ER ---
Nurse's Notes [facility] Name: Bartolo Phelps Age: 43 yrs Sex: Male : 1975 Arrival Date: 05/05/2018 Time: 22:14 Bed 13 Private MD: Diagnosis: Fracture base right 5th meta-tarsal Presentation: 05/05 22:19 Presenting complaint: Patient states: About two days ago I was stepping in to the jb4 bathtub and I stepped wrong and felt a pop in my right foot. Tonight I tripped over my daughter and made it worse. I cannot put any weight on it and I think it may be broken. 22:19 Transition of care: patient was not received from another setting of care. Onset of jb4 symptoms was May 03, 2018. Risk Assessment: Do you want to hurt yourself or someone else? Patient reports no desire to harm self or others. Initial Sepsis Screen: Does the patient meet any 2 criteria? No. Patient's initial sepsis screen is negative. Does the patient have a suspected source of infection? No. Patient's initial sepsis screen is negative. Care prior to arrival: None. 22:19 Method Of Arrival: Wheelchair jb4 22:19 Acuity: FAISAL 3 jb4 Triage Assessment: 22:19 General: Appears in no apparent distress. uncomfortable, Behavior is calm, cooperative, jb4 appropriate for age. Pain: Complains of pain in lateral side of right foot and right fifth toe Pain does not radiate. Pain currently is 9 out of 10 on a pain scale. Quality of pain is described as throbbing. EENT: No signs and/or symptoms were reported regarding the EENT system. Neuro: Level of Consciousness is awake, alert, obeys commands, Oriented to person, place, time, situation. Cardiovascular: Patient's skin is warm and dry. Respiratory: Airway is patent Respiratory effort is even, unlabored, Respiratory pattern is regular, symmetrical. GI: No signs and/or symptoms were reported involving the gastrointestinal system. : No signs and/or symptoms were reported regarding the genitourinary system. Derm: Skin is intact, Skin is pink, warm \T\ dry. Musculoskeletal: Circulation, motion, and sensation intact. Capillary refill < 3 seconds, in right toes. Historical: - Allergies: :19 Bees; jb4 - Home Meds: 22:19 gabapentin Oral [Active]; lisinopril Oral [Active]; Plavix Oral [Active]; jb4 - PMHx: 22:19 CVA x3; Hypertension; TIA; jb4 - PSHx: 22:19 None; jb4 - Immunization history:: Adult Immunizations up to date, Flu vaccine is up to date. - Social history:: Smoking status: Patient uses tobacco products, chewing tobacco, Patient uses alcohol, but reports only rare drinking. - Ebola Screening: : No symptoms or risks identified at this time. Screenin:19 Abuse screen: Denies threats or abuse. Nutritional screening: No deficits noted. jb4 Tuberculosis screening: No symptoms or risk factors identified. Fall Risk None identified. Assessment: 22:19 General: See triage assessment.. jb4 23:30 Reassessment: Patient appears in no apparent distress at this time. Patient and/or jb4 family updated on plan of care and expected duration. Pain level reassessed. Patient is alert, oriented x 3, equal unlabored respirations, skin warm/dry/pink. 05/06 00:38 Reassessment: Patient appears in no apparent distress at this time. Patient and/or jb4 family updated on plan of care and expected duration. Pain level reassessed. Patient is alert, oriented x 3, equal unlabored respirations, skin warm/dry/pink. Pt refused crutches due to having them at home. Vital Signs: 05/05 22:19 BP 133 / 75; Pulse 85; Resp 16; Temp 98.7(O); Pulse Ox 100% on R/A; Weight 108.86 kg jb4 (R); Height 6 ft. 1 in. (185.42 cm) (R); Pain 9/10; 23:15 BP 124 / 70; Pulse 89; Resp 16; Pulse Ox 98% on R/A; jb4 05/06 00:15 BP 113 / 59; Pulse 89; Resp 16; Pulse Ox 100% ; jb4 05/05 22:19 Body Mass Index 31.66 (108.86 kg, 185.42 cm) jb4 ED Course: 05/05 22:14 Patient arrived in ED. es 22:19 Barrie Sanford, KELSIE is Primary Nurse. jb4 22:19 Duglas Dela Cruz MD is Attending Physician. pkl 22:19 Arm band placed on right wrist. jb4 22:19 Patient has correct armband on for positive identification. Bed in low position. Call jb4 light in reach. Side rails up X 1. Pulse ox on. NIBP on. 22:46 Triage completed. jb4 23:09 Foot Right 3 View XRAY In Process Unspecified. EDMS 23:46 Bartolo Chaney MD is Referral Physician. pkl 23:57 Orthoglass splint:. em1 05/06 00:00 Cy wrap to right ankle and right foot. gm 00:30 No provider procedures requiring assistance completed. Patient did not have IV access jb4 during this emergency room visit. Administered Medications: 05/05 23:01 Drug: [place] (7.5 mg-325 mg) 1 tabs Route: PO; jb4 05/06 00:15 Follow up: Response: No adverse reaction; Pain is unchanged, physician notified jb4 00:20 Drug: Demerol 50 mg Route: IM; Site: right deltoid; jb4 00:37 Follow up: Response: No adverse reaction jb4 00:20 Drug: Phenergan 12.5 mg Route: IM; Site: right deltoid; jb4 00:37 Follow up: Response: No adverse reaction jb4 Outcome: 05/05 23:47 Discharge ordered by . pk 05/06 00:30 Discharged to home via wheelchair, with family. jb4 Condition: stable Discharge instructions given to patient, significant other, Instructed on discharge instructions, follow up and referral plans. medication usage, Demonstrated understanding of instructions, follow-up care, medications, Prescriptions given X 1. 00:41 Patient left the ED. jb4 Signatures: Dispatcher [employer] Duglas Mar MD MD pkl Hoda Wahl Eric em1 Barrie Sanford, RN RN jb4 Brisa Morrison Corrections: (The following items were deleted from the chart) 00:00 00:00 Orthoglass splint: Posterior short lleg splint applied on right leg. [facility] 00:38 00:38 Reassessment: Patient appears in no apparent distress at this time. Patient jb4 and/or family updated on plan of care and expected duration. Pain level reassessed. Patient is alert, oriented x 3, equal unlabored respirations, skin warm/dry/pink. jb4
[2018-05-06] MEDS ORDERED: MEPERIDINE HCL 50 MG/ML AMP ONE (00:30)
[2018-05-06] MEDS ORDERED: PROMETHAZINE 25 MG/ML VIAL ONE (00:31)
[2018-05-06 00:54] VITALS: TEMP 98.7
[2018-05-06 00:56] VITALS: BP 113/59; O2SAT 100
--- NOTE | 2018-05-06 07:32 | RAD REPORT ---
EXAM DESCRIPTION: RAD - Foot Right 3 View - 05/05/2018 11:09 pm CLINICAL HISTORY: Right foot pain status post injury FINDINGS: Nondisplaced fracture base fifth metacarpal. No dislocation
== END 2018-05-06 00:41 | disposition home or self-care (01) ==
LOC: ER 22:11
PROC: 2W3QX1Z Immobilization of Right Lower Leg using Splint (ICD-10-PCS; principal; 2018-05-06)
DX: S92.351A Displaced fracture of fifth metatarsal bone, right foot, initial encounter for closed fracture (principal); W19.XXXA Unspecified fall, initial encounter; Y93.9 Activity, unspecified; Y92.9 Unspecified place or not applicable; Z72.0 Tobacco use; Z79.01 Long term (current) use of anticoagulants; Z86.73 Personal history of transient ischemic attack (TIA), and cerebral infarction without residual deficits; Z91.030 Bee allergy status; I10 Essential (primary) hypertension
CPT/HCPCS: 96372; 99284; J2175; J2550

== ENCOUNTER 2020-11-25 19:28 | Emergency (ER) | payer OTHER ==
--- OUTSIDE RECORDS SUMMARY | 2020-11-25 19:33 | XMS REPORT | Continuity of Care Document ---
:1975 Author Organization [facility] t Address [address] [place] [address] Dr. Peacock [address] [place] [id number] Care Team Providers Name Role Phone Unavailable Unavailable Unavailable Problems This patient has no known problems. Allergies, Adverse Reactions, Alerts This patient has no known allergies or adverse reactions. Medications This patient has no known medications. Procedures This patient has no known procedures. Results This patient has no known results.
[2020-11-25 21:28] LABS: Absolute Lymphocytes (CBC) 2.7 K/uL (0.7-4.9); Basophils % 0.6 % (0-1.3); Hematocrit 40.6 % (39.6-49.0); Lymphocytes % 23.4 % (15.3-44.8); MPV 11.6 fL (7.6-11.3); RBC Red Blood Cell Count 4.62 M/uL (4.33-5.43)
[2020-11-25 21:39] LABS: Protime INR 1.03
[2020-11-25] MEDS ORDERED: ASPIRIN 81 MG CHEWABLE TABLET ONE (21:44)
[2020-11-25 21:46] LABS: ALT/SGPT 48 U/L (12-78); AST/SGOT 29 U/L (15-37); Albumin 3.7 g/dL (3.4-5.0); Alkaline Phosphatase 54 U/L (45-117); BUN Blood Urea Nitrogen 14 mg/dL (7-18); Bicarbonate 25 mmol/L (21-32); Bilirubin Direct < 0.1 mg/dL (0-0.2); Bilirubin Total 0.3 mg/dL (0.2-1.0); Glucose Level 94 mg/dL (74-106); NT PRO-BNP 11 pg/mL (<125); Potassium 3.9 mmol/L (3.5-5.1); Protein, Total 6.9 g/dL (6.4-8.2); Sodium Level 138 mmol/L (136-145); Troponin (Emerg Dept Use Only) < 0.02 ng/mL (0.0-0.045)
--- NOTE | 2020-11-25 21:49 | RAD REPORT ---
EXAM DESCRIPTION: RAD - Chest Single View - 11/25/2020 9:30 pm CLINICAL HISTORY: CHEST PAIN Chest pain. COMPARISON: Chest Single View dated 10/14/2017; Chest Single View dated 03/27/2016 FINDINGS: Portable technique limits examination quality. The lungs are grossly clear. The heart is normal in size. No displaced fractures. IMPRESSION: No acute intrathoracic process suspected.
[2020-11-25 21:54] LABS: Urine Blood Negative (Negative); Urine Glucose Negative (Negative); Urine Protein Negative (Negative); Urine Specific Gravity <=1.005 (1.005-1.030); Urine pH 6.5 (5.0-7.0)
[2020-11-25 21:55] LABS: Blood Morphology Comment NOT SEEN (NOT SEEN); Platelet Estimate DECR; Platelets, Giant PRESENT; White Blood Cell Scan OK (OK)
[2020-11-25 22:24] LABS: Barbiturates NEGATIVE (NEGATIVE); Benzodiazepines NEGATIVE (NEGATIVE); Cocaine NEGATIVE (NEGATIVE); METHAMPHETAM NEGATIVE (NEGATIVE); Methadone NEGATIVE (NEGATIVE); Opiates NEGATIVE (NEGATIVE); Phencyclidine NEGATIVE (NEGATIVE); THC Cannibis NEGATIVE (NEGATIVE)
--- NOTE | 2020-11-26 01:49 | ER ---
Nurse's Notes [facility] Name: Bartolo Phelps Age: 45 yrs Sex: Male : 1975 Arrival Date: 11/25/2020 Time: 19:32 Bed 16 Private MD: Diagnosis: Chest pain, unspecified Presentation: 11/25 19:56 Chief complaint: Patient states: midsternal chest pain, intermittent since around 1400 ca1 today. Reports SOB with chest pains. Coronavirus screen: Client denies travel out of the [place] in the last 14 days. shortness of breath, Client presents with at least one sign or symptom that may indicate coronavirus-19. Standard/surgical mask placed on the client. Provider contacted for isolation considerations. Ebola Screen: Patient negative for fever greater than or equal to 101.5 degrees Fahrenheit, and additional compatible Ebola Virus Disease symptoms Patient denies exposure to infectious person. Patient denies travel to an Ebola-affected area in the 21 days before illness onset. No symptoms or risks identified at this time. Initial Sepsis Screen: Does the patient meet any 2 criteria? No. Patient's initial sepsis screen is negative. Does the patient have a suspected source of infection? No. Patient's initial sepsis screen is negative. Risk Assessment: Do you want to hurt yourself or someone else? Patient reports no desire to harm self or others. Onset of symptoms was November 25, 2020. 19:56 Method Of Arrival: Ambulatory ca1 19:56 Acuity: FAISAL 3 ca1 Triage Assessment: 22:08 Respiratory: zb 11/26 00:58 Respiratory: Onset: The symptoms/episode began/occurred yesterday. bb Historical: - Allergies: 11/25 19:57 Bees; ca1 - Home Meds: 19:57 Plavix 75 mg oral tab 1 tab once daily [Active]; lisinopril Oral [Active]; gabapentin ca1 Oral [Active]; atorvastatin 40 mg oral tab 1 tab once daily [Active]; - PMHx: 19:57 CVA x3; Hypertension; TIA; Hypercholesterolemia; ca1 - Immunization history:: Client reports having NOT received the Covid vaccine. Flu vaccine is up to date. - Social history:: Smoking status: Patient/guardian denies using tobacco, the patient reports quitting approximately 5 years ago. Screenin:08 Abuse screen: Denies threats or abuse. Denies injuries from another. Nutritional zb screening: No deficits noted. Tuberculosis screening: No symptoms or risk factors identified. Fall Risk None identified. Assessment: 21:15 General: Appears in no apparent distress. comfortable, Behavior is calm, cooperative, zb appropriate for age. Pain: Complains of pain in chest Pain does not radiate. Pain currently is 6 out of 10 on a pain scale. Quality of pain is described as dull, sharp. Neuro: Level of Consciousness is awake, alert, obeys commands, Oriented to person, place, time, situation. Cardiovascular: Reports chest pain, shortness of breath, Denies nausea, vomiting, Patient's skin is warm and dry. Pulses are all present. Rhythm is regular. Respiratory: Airway is patent Respiratory effort is even, unlabored, Breath sounds are diminished. GI: No deficits noted. Derm: Skin is intact, is healthy with good turgor. Musculoskeletal: Range of motion: intact in all extremities. 22:06 Reassessment: pt states he will not take aspirin or IB. ECP made aware. Reassessment: zb Patient appears in no apparent distress at this time. Patient and/or family updated on plan of care and expected duration. Pain level reassessed. Patient is alert, oriented x 3, equal unlabored respirations, skin warm/dry/pink. 23:28 Reassessment: Patient appears in no apparent distress at this time. Patient and/or zb family updated on plan of care and expected duration. Pain level reassessed. Patient is alert, oriented x 3, equal unlabored respirations, skin warm/dry/pink. 11/26 00:30 Reassessment: Patient is alert, oriented x 3, equal unlabored respirations, skin bb warm/dry/pink. IV site intact, patent with no erythema or edema noted. 01:56 Reassessment: Patient is alert, oriented x 3, equal unlabored respirations, skin bb warm/dry/pink. pt verbalized understanding of and agrees to plan of care discharge instructions given pt ambulated with steady gait to exit accompanied by family. Vital Signs: 11/25 19:56 BP 142 / 79; Pulse 89; Resp 18 S; Temp 98.8(TE); Pulse Ox 98% on R/A; Weight 108.86 kg ca1 (R); Height 6 ft. 1 in. (185.42 cm) (R); Pain 9/10; 22:07 BP 128 / 67; Pulse 83; Resp 18; Pulse Ox 97% on R/A; zb 23:28 BP 123 / 72; Pulse 82; Resp 16; Pulse Ox 97% ; zb 11/26 00:30 BP 125 / 63; Pulse 74; Resp 16 S; Pulse Ox 98% on R/A; Pain 5/10; bb 01:50 BP 136 / 78; Pulse 72; Resp 16; Pulse Ox 97% on R/A; bb 11/25 19:56 Body Mass Index 31.66 (108.86 kg, 185.42 cm) ca1 ED Course: 11/25 19:32 Patient arrived in ED. cf2 19:57 Triage completed. ca1 19:57 Arm band placed on right wrist. EKG completed in triage. Results shown to MD. ca1 20:27 Ulises Chambers MD is Attending Physician. 7 20:30 Paulette Linder RN is Primary Nurse. zb 21:29 XRAY Chest (1 view) In Process Unspecified. EDMS 22:08 Patient has correct armband on for positive identification. cattle dipper on. Pulse zb ox on. NIBP on. Door closed. Noise minimized. 11/26 00:30 Repeat lab(s) drawn. by me, sent to lab. bb 01:57 IV discontinued, intact, bleeding controlled, No redness/swelling at site. Pressure bb dressing applied. 01:57 No provider procedures requiring assistance completed. bb Administered Medications: 11/25 22:06 Not Given (Patient Refused): Aspirin Chewable Tablet 324 mg PO once; 81 mg tablets x 4 zb Outcome: 11/26 01:48 Discharge ordered by . madhavi 01:57 Discharged to home ambulatory, with family. bb 01:57 Condition: stable 01:57 Discharge instructions given to patient, Instructed on discharge instructions, follow up and referral plans. Demonstrated understanding of instructions, follow-up care. 01:58 Patient left the ED. bb Signatures: Dispatcher [employer] EDMS Raquel Solano RN RN Roxanne Mejia RN RN ca1 Bandar Godfrey cf2 Ulises Chambers MD MD Paulette Zelaya RN RN zmika
--- NOTE | 2020-11-26 01:49 | EDPHYS ---
Physician Documentation [facility] Name: Bartolo Phelps Age: 45 yrs Sex: Male : 1975 Arrival Date: 11/25/2020 Time: 19:32 Bed 16 Private MD: ED Physician Ulises Chambers HPI: 11/25 21:00 This 45 yrs old Male presents to ER via Ambulatory with complaints of Chest mh7 Tightness, Breathing Difficulty. 21:49 The patient or guardian reports chest pain that is located primarily in the substernal mh7 area. Onset: today, at 14:00. The pain does not radiate. Associated signs and symptoms: Pertinent positives: cough, shortness of breath, Pertinent negatives: abdominal pain, diaphoresis, dizziness, headache, lower extremity pain, lower extremity swelling, lightheadedness, nausea, near syncope, palpitations, recent travel, syncope, vomiting. The chest pain is described as tightness. Duration: The patient or guardian reports multiple episodes, that are intermittent, that wax and wane. Modifying factors: The symptoms are alleviated by nothing. the symptoms are aggravated by nothing. Severity of pain: At its worst the pain was moderate today, in the emergency department the pain has improved markedly. 21:51 States that he was working outside all day and got chest tightness.. mh7 Historical: - Allergies: 19:57 Bees; ca1 - Home Meds: 19:57 Plavix 75 mg oral tab 1 tab once daily [Active]; lisinopril Oral [Active]; gabapentin ca1 Oral [Active]; atorvastatin 40 mg oral tab 1 tab once daily [Active]; - PMHx: 19:57 CVA x3; Hypertension; TIA; Hypercholesterolemia; ca1 - Immunization history:: Client reports having NOT received the Covid vaccine. Flu vaccine is up to date. - Social history:: Smoking status: Patient/guardian denies using tobacco, the patient reports quitting approximately 5 years ago. ROS: 21:49 Constitutional: Negative for fever, chills, and weight loss, Eyes: Negative for injury, mh7 pain, redness, and discharge, ENT: Negative for injury, pain, and discharge, Neck: Negative for injury, pain, and swelling, Abdomen/GI: Negative for abdominal pain, nausea, vomiting, diarrhea, and constipation, Back: Negative for injury and pain, : Negative for injury, bleeding, discharge, and swelling, MS/Extremity: Negative for injury and deformity, Skin: Negative for injury, rash, and discoloration, Neuro: Negative for headache, weakness, numbness, tingling, and seizure, Psych: Negative for depression, anxiety, suicide ideation, homicidal ideation, and hallucinations, Allergy/Immunology: Negative for hives, rash, and allergies, Endocrine: Negative for neck swelling, polydipsia, polyuria, polyphagia, and marked weight changes, Hematologic/Lymphatic: Negative for swollen nodes, abnormal bleeding, and unusual bruising. Exam: 21:49 Constitutional: This is a well developed, well nourished patient who is awake, alert, mh7 and in no acute distress. Head/Face: Normocephalic, atraumatic. Eyes: Pupils equal round and reactive to light, extra-ocular motions intact. Lids and lashes normal. Conjunctiva and sclera are non-icteric and not injected. Cornea within normal limits. Periorbital areas with no swelling, redness, or edema. ENT: Nares patent. No nasal discharge, no septal abnormalities noted. Tympanic membranes are normal and external auditory canals are clear. Oropharynx with no redness, swelling, or masses, exudates, or evidence of obstruction, uvula midline. Mucous membranes moist. Neck: Trachea midline, no thyromegaly or masses palpated, and no cervical lymphadenopathy. Supple, full range of motion without nuchal rigidity, or vertebral point tenderness. No Meningismus. Chest/axilla: Normal chest wall appearance and motion. Nontender with no deformity. No lesions are appreciated. Cardiovascular: Regular rate and rhythm with a normal S1 and S2. No gallops, murmurs, or rubs. Normal PMI, no JVD. No pulse deficits. Respiratory: Lungs have equal breath sounds bilaterally, clear to auscultation and percussion. No rales, rhonchi or wheezes noted. No increased work of breathing, no retractions or nasal flaring. Abdomen/GI: Soft, non-tender, with normal bowel sounds. No distension or tympany. No guarding or rebound. No evidence of tenderness throughout. Back: No spinal tenderness. No costovertebral tenderness. Full range of motion. Skin: Warm, dry with normal turgor. Normal color with no rashes, no lesions, and no evidence of cellulitis. MS/ Extremity: Pulses equal, no cyanosis. Neurovascular intact. Full, normal range of motion. Neuro: Awake and alert, GCS 15, oriented to person, place, time, and situation. Cranial nerves II-XII grossly intact. Motor strength 5/5 in all extremities. Sensory grossly intact. Cerebellar exam normal. Normal gait. Psych: Awake, alert, with orientation to person, place and time. Behavior, mood, and affect are within normal limits. Vital Signs: 19:56 BP 142 / 79; Pulse 89; Resp 18 S; Temp 98.8(TE); Pulse Ox 98% on R/A; Weight 108.86 kg ca1 (R); Height 6 ft. 1 in. (185.42 cm) (R); Pain 9/10; 22:07 BP 128 / 67; Pulse 83; Resp 18; Pulse Ox 97% on R/A; zb 23:28 BP 123 / 72; Pulse 82; Resp 16; Pulse Ox 97% ; zb 11/26 00:30 BP 125 / 63; Pulse 74; Resp 16 S; Pulse Ox 98% on R/A; Pain 5/10; bb 01:50 BP 136 / 78; Pulse 72; Resp 16; Pulse Ox 97% on R/A; bb 11/25 19:56 Body Mass Index 31.66 (108.86 kg, 185.42 cm) ca1 MDM: 01:46 Differential diagnosis: acute myocardial infarction, acute pericarditis, anxiety, mh7 coronary artery disease chest wall pain, congestive heart failure costochondritis, myocarditis, pericarditis, pneumonia, pneumothorax, pulmonary embolus. HEART Score: History: Slightly Suspicious (0), ECG: Normal (0), Age: < or = 45 years (0), Risk Factors: 1 or 2 risk factors (1), [Hypercholesterolemia] [Hypertension] Troponin: < or = 1 x Normal Limit (0), Total Score = 1. The patient was not given aspirin in the Emergency Department. Aspirin not given, patient refused. Data reviewed: vital signs, nurses notes, lab test result(s), cardiac enzymes, CBC, electrolytes, EKG, radiologic studies, plain films. Data interpreted: Pulse oximetry: on room air is 98 %. Interpretation: normal. Counseling: I had a detailed discussion with the patient and/or guardian regarding: the historical points, exam findings, and any diagnostic results supporting the discharge/admit diagnosis, lab results, radiology results, the need for outpatient follow up, to return to the emergency department if symptoms worsen or persist or if there are any questions or concerns that arise at home. Response to treatment: the patient's symptoms have resolved after treatment, the patient's blood pressure is in an acceptable range, mental status has returned to baseline, the patient no longer shows bradycardia, the patient is not short of breath, the patient is not tachycardic, the patient's pain is gone, the patient's temperature has normalized. 01:[address] [facility] 11/25 20:47 Order name: Basic Metabolic Panel; Complete Time: 21:52 [facility] 11/25 20:47 Order name: CBC with Diff; Complete Time: 23:16 [facility] 11/25 20:47 Order name: LFT's; Complete Time: 21:52 [facility] 11/25 20:47 Order name: Magnesium; Complete Time: 21:52 [facility] 11/25 20:47 Order name: NT PRO-BNP; Complete Time: 21:52 [facility] 11/25 20:47 Order name: PT-INR; Complete Time: 00:39 [facility] 11/25 20:47 Order name: Troponin (emerg Dept Use Only); Complete Time: 21:52 [facility] 11/25 21:12 Order name: CPK; Complete Time: 23:16 [facility] 11/25 21:12 Order name: UDS; Complete Time: 23:16 [facility] 11/25 21:49 Order name: CBC Smear Scan; Complete Time: 23:16 [facility] 11/25 21:54 Order name: Urine Dipstick-Ancillary [facility] 11/25 23:55 Order name: D-Dimer; Complete Time: 00:39 [facility] 11/25 20:00 Order name: EKG; Complete Time: 20:00 [facility] 11/25 20:00 Order name: EKG - Nurse/Tech; Complete Time: 20:00 [facility] 11/25 20:47 Order name: XRAY Chest (1 view); Complete Time: 21:52 [facility] 11/25 20:47 Order name: Cardiac monitoring; Complete Time: 21:15 [facility] 11/25 20:47 Order name: IV Saline Lock; Complete Time: 21:15 [facility] 11/25 20:47 Order name: Labs collected and sent; Complete Time: 21:15 [facility] 11/25 20:47 Order name: O2 Per Protocol; Complete Time: 21:15 [facility] 11/25 20:47 Order name: O2 Sat Monitoring; Complete Time: 21:15 [facility] 11/25 21:12 Order name: Urine Dipstick-Ancillary (obtain specimen); Complete Time: 21:17 [facility] 11/25 23:55 Order name: Troponin (emerg Dept Use Only); Complete Time: 01:43 [facility] 11/26 00:27 Order name: SARS-COV-2 RT PCR; Complete Time: 00:39 EDMS Administered Medications: 11/25 22:06 Not Given (Patient Refused): Aspirin Chewable Tablet 324 mg PO once; 81 mg tablets x 4 zb Disposition Summary: 11/26/20 01:48 Discharge Ordered Location: Home [facility] Problem: [facility] Symptoms: are resolved [facility] Condition: Stable [facility] Diagnosis - Chest pain, unspecified [facility] Followup: [facility] - With: Private Physician - When: 1 - 2 days - Reason: Worsening of condition, Recheck today's complaints, Continuance of care, Re-evaluation by your physician Discharge Instructions: - Discharge Summary Sheet [facility] - Nonspecific Chest Pain, Adult, [id number] [facility] Forms: - Medication Reconciliation Form [facility] - Thank You Letter [facility] - Antibiotic Education [facility] - Prescription Opioid Use [facility] Signatures: Dispatcher [employer] EDMS Roxanne Deleon RN RN ca1 Ulises Chambers MD MD mh7 Paulette Linder RN zb Corrections: (The following items were deleted from the chart) 21:48 21:47 This 45 yrs old Male presents to ER via Ambulatory with complaints of 7 Chest Tightness, Breathing Difficulty. mh7 23:17 22:43 CORONAVIRUS+MR.LAB.BRZ ordered. EDMS EDMS 23:54 23:17 D-DIMER+COAG.LAB.BRZ ordered. EDMS EDMS
--- NOTE | 2020-11-26 09:03 | EKG ---
Test Date: 2020-11-25 Test Time: 19:53:52 Corporate Relations Director: [employer] MEASUREMENT RESULTS: Intervals: Rate: 89 IN: 182 QRSD: 84 QT: 364 QTc: 442 [place]: P: 48 IN: 182 QRS: -21 T: 45 INTERPRETIVE STATEMENTS: Normal sinus rhythm Normal ECG Compared to ECG 10/14/2017 12:12:22 No significant changes Electronically Signed On 11-26-20 09:01:53 CDT by Perez Ramos
[2020-11-26 10:27] VITALS: BP 125/63; TEMP 98.8; O2SAT 98
== END 2020-11-26 01:58 | disposition home or self-care (01) ==
LOC: ER 19:28
DX: R07.89 Other chest pain (principal); I10 Essential (primary) hypertension; Z79.01 Long term (current) use of anticoagulants; Z86.73 Personal history of transient ischemic attack (TIA), and cerebral infarction without residual deficits; Z91.030 Bee allergy status; Z20.822 Contact with and (suspected) exposure to COVID-19
CPT/HCPCS: 93005; 85025; 80048; 36415; 83735; 82550; 85610; 85379; 80076; 81003; 84484 ×2; 83880; 80307; 71045; 99284; U0003

== ENCOUNTER 2020-12-04 11:00 | Emergency (ER) | payer OTHER ==
--- OUTSIDE RECORDS SUMMARY | 2020-12-04 11:03 | XMS REPORT | Continuity of Care Document ---
:1975 Author Organization [facility] t Address [address] [place] [address] Dr. Peacock [address] [place] [id number] Care Team Providers Name Role Phone Unavailable Unavailable Unavailable Problems This patient has no known problems. Allergies, Adverse Reactions, Alerts This patient has no known allergies or adverse reactions. Medications This patient has no known medications. Procedures This patient has no known procedures. Results This patient has no known results.
[2020-12-04] MEDS ORDERED: METHYLPREDNISOLONE 125 MG INJ ONE (12:24)
[2020-12-04] MEDS ORDERED: NA CHLORIDE 0.9% 1,000 ML ONE (12:24)
[2020-12-04] MEDS ORDERED: FAMOTIDINE 20 MG/2 ML VIAL IV ONE (12:24)
--- NOTE | 2020-12-06 16:30 | ER ---
Nurse's Notes [facility] Name: Bartolo Phelps Age: 45 yrs Sex: Male : 1975 Arrival Date: 12/04/2020 Time: 11:01 Bed 7 Private MD: Diagnosis: Insect allergy status-wasp;Insect bite (nonvenomous) of left upper arm;Insect bite (nonvenomous) of left forearm Presentation: 12/04 11:37 Chief complaint: Patient states: got stung by 3-5 yellow jackets today at 11, took some iw benadryl, gt stung on left arm , abdomen, pt denies SOB, is 99% on RA, states he was told if he ever got stung by a wasp to be seen in ER. Coronavirus screen: At this time, the client does not indicate any symptoms associated with coronavirus-19. Ebola Screen: Patient negative for fever greater than or equal to 101.5 degrees Fahrenheit, and additional compatible Ebola Virus Disease symptoms Patient denies exposure to infectious person. Patient denies travel to an Ebola-affected area in the 21 days before illness onset. No symptoms or risks identified at this time. Initial Sepsis Screen: Does the patient meet any 2 criteria? No. Patient's initial sepsis screen is negative. Does the patient have a suspected source of infection? No. Patient's initial sepsis screen is negative. Risk Assessment: Do you want to hurt yourself or someone else? Patient reports no desire to harm self or others. Onset of symptoms was December 04, 2020. 11:37 Method Of Arrival: Ambulatory iw 11:37 Acuity: FAISAL 4 iw 12:07 Acuity: FAISAL 3 iw Triage Assessment: 12:05 General: Appears in no apparent distress. uncomfortable, Behavior is calm, cooperative, jl7 appropriate for age. Pain: Denies pain. Neuro: Level of Consciousness is awake, alert, obeys commands, Oriented to person, place, time, situation. Cardiovascular: Patient's skin is warm and dry. Respiratory: Airway is patent Respiratory effort is even, unlabored, Respiratory pattern is regular, symmetrical. Derm: Skin is pink, warm \T\ dry. Historical: - Allergies: 11:39 Wasps; iw - Home Meds: 11:39 lisinopril Oral [Active]; atorvastatin 40 mg Oral tab 1 tab once daily [Active]; Plavix iw 75 mg Oral tab 1 tab once daily [Active]; gabapentin Oral [Active]; - PMHx: 11:39 CVA x3; Hypercholesterolemia; Hypertension; TIA; iw - Immunization history:: Client reports having NOT received the Covid vaccine. - Social history:: Smoking status: Patient denies any tobacco usage or history of. Screenin:16 Abuse screen: Denies threats or abuse. Denies injuries from another. Nutritional jl7 screening: No deficits noted. Tuberculosis screening: No symptoms or risk factors identified. Fall Risk IV access (20 points). Total Rodriguez Fall Scale indicates No Risk (0-24 pts). Assessment: 12:16 General: See triage assessment. jl7 13:00 Reassessment: Patient appears in no apparent distress at this time. Patient and/or jl7 family updated on plan of care and expected duration. Pain level reassessed. Patient is alert, oriented x 3, equal unlabored respirations, skin warm/dry/pink. Patient states feeling better. Vital Signs: 11:37 BP 127 / 81; Pulse 77; Resp 16; Temp 98.1; Pulse Ox 99% on R/A; Weight 110.22 kg; iw Height 6 ft. 1 in. (185.42 cm); 12:17 BP 119 / 69; Pulse 76; Resp 17; Pulse Ox 96% ; jl7 13:00 BP 111 / 60; Pulse 70; Resp 15; Pulse Ox 99% ; jl7 11:37 Body Mass Index 32.06 (110.22 kg, 185.42 cm) iw ED Course: 11:01 Patient arrived in ED. ds1 11:39 Triage completed. iw 11:40 Arm band placed on. iw 11:42 Blanquita Cowan FNP-C is PHCP. kb 11:42 Sabina Amador MD is Attending Physician. kb 11:53 Jay Jay Nazario RN is Primary Nurse. jl7 12:06 Inserted saline lock: 20 gauge in right hand, using aseptic technique. dh3 12:16 Patient has correct armband on for positive identification. Bed in low position. Call jl7 light in reach. Side rails up X 1. Pulse ox on. NIBP on. 13:19 No provider procedures requiring assistance completed. IV discontinued, intact, jl7 bleeding controlled, No redness/swelling at site. Pressure dressing applied. Administered Medications: 12:10 Drug: NS 0.9% 1000 ml Route: IV; Rate: 1000 ml; Site: right hand; jl7 13:10 Follow up: Response: No adverse reaction; IV Status: Completed infusion; IV Intake: jl7 800ml 12:10 Drug: SOLU-Medrol (methylPrednisoLONE) 125 mg Route: IVP; Site: right hand; jl7 13:22 Follow up: Response: No adverse reaction jl7 12:12 Drug: Pepcid (famotidine) 20 mg Route: IVP; Site: right hand; jl7 13:22 Follow up: Response: No adverse reaction jl7 Intake: 13:10 IV: 800ml; Total: 800ml. jl7 Outcome: 13:07 Discharge ordered by MD. choe 13:19 Discharged to home ambulatory. jl7 13:19 Condition: stable 13:19 Discharge instructions given to patient, Instructed on discharge instructions, follow up and referral plans. medication usage, Demonstrated understanding of instructions, follow-up care, medications, Prescriptions given X 2. 13:23 Patient left the ED. jl7 Signatures: Blanquita Cowan, VP SECURITIES-C VP SECURITIES-Raquel Chi ds1 Aisha Ruiz RN RN iw Jay Jay Nazario RN RN jl7 Harriett Lau 3 Corrections: (The following items were deleted from the chart) 11:40 11:39 Allergies: Bees; [facility]
--- NOTE | 2020-12-06 16:30 | EDPHYS ---
Physician Documentation [facility] Name: Bartolo Phelps Age: 45 yrs Sex: Male : 1975 Arrival Date: 12/04/2020 Time: 11:01 Bed 7 Private MD: ED Physician Sabina Amador HPI: 12/04 16:56 This 45 yrs old Male presents to ER via Ambulatory with complaints of Wasp kb Sting. 16:56 The patient was bitten on the abdomen and left arm, by yellow jacket, while in the [employer] garden or yard, at home, outdoors. Onset: The symptoms/episode began/occurred just prior to arrival. Animal information: yellow jacket. Secondary to the bite the patient reports erythema, swelling. Associated signs and symptoms: Pertinent positives: erythema at site, swelling at site. Severity of symptoms: At their worst the symptoms were mild, moderate, in the emergency department the symptoms have improved. The patient has not experienced similar symptoms in the past. The patient has not recently seen a physician. Patient reports he was doing yard work and got stung 3-4 times by yellow jackets. Patient allergic to wasp stings and started to have some slight shortness of breath so he took Benadryl and came in. Historical: - Allergies: 11:39 Wasps; iw - Home Meds: 11:39 lisinopril Oral [Active]; atorvastatin 40 mg Oral tab 1 tab once daily [Active]; Plavix iw 75 mg Oral tab 1 tab once daily [Active]; gabapentin Oral [Active]; - PMHx: 11:39 CVA x3; Hypercholesterolemia; Hypertension; TIA; iw - Immunization history:: Client reports having NOT received the Covid vaccine. - Social history:: Smoking status: Patient denies any tobacco usage or history of. ROS: 16:54 Constitutional: Negative for fever, chills, and weight loss. kb 16:54 Respiratory: Positive for shortness of breath, Negative for cough, dyspnea on exertion, hemoptysis, orthopnea, pleurisy, sputum production, wheezing. 16:54 Skin: Positive for erythema, swelling, of the abdomen and left arm. 16:54 All other systems are negative. Exam: 16:54 Constitutional: This is a well developed, well nourished patient who is awake, alert, kb and in no acute distress. Head/Face: Normocephalic, atraumatic. ENT: Moist Mucous membranes Cardiovascular: Regular rate and rhythm with a normal S1 and S2. No gallops, murmurs, or rubs. No pulse deficits. Respiratory: Respirations even and unlabored. No increased work of breathing, no retractions or nasal flaring. Abdomen/GI: Soft, non-tender. No distention MS/ Extremity: Pulses equal, no cyanosis. Neurovascular intact. Full, normal range of motion. Neuro: Awake and alert, GCS 15, oriented to person, place, time, and situation. Moves all extremities. Normal gait. Psych: Awake, alert, with orientation to person, place and time. Behavior, mood, and affect are within normal limits. 16:54 Skin: 2 insect stings to left arm 1 to mid abdomen with surrounding erythema and slight swelling. Vital Signs: 11:37 BP 127 / 81; Pulse 77; Resp 16; Temp 98.1; Pulse Ox 99% on R/A; Weight 110.22 kg; iw Height 6 ft. 1 in. (185.42 cm); 12:17 BP 119 / 69; Pulse 76; Resp 17; Pulse Ox 96% ; jl7 13:00 BP 111 / 60; Pulse 70; Resp 15; Pulse Ox 99% ; jl7 11:37 Body Mass Index 32.06 (110.22 kg, 185.42 cm) iw MDM: 11:44 Patient medically screened. kb 13:16 Data reviewed: vital signs, nurses notes. Data interpreted: Pulse oximetry: on room air kb is 96 %. Interpretation: normal. Counseling: I had a detailed discussion with the patient and/or guardian regarding: the historical points, exam findings, and any diagnostic results supporting the discharge/admit diagnosis, the need for outpatient follow up, a family practitioner, to return to the emergency department if symptoms worsen or persist or if there are any questions or concerns that arise at home. 13:17 Response to treatment: the patient's symptoms have markedly improved after treatment. kb 12/04 11:50 Order name: IV Start; Complete Time: 12:08 kb Administered Medications: 12:10 Drug: NS 0.9% 1000 ml Route: IV; Rate: 1000 ml; Site: right hand; jl7 13:10 Follow up: Response: No adverse reaction; IV Status: Completed infusion; IV Intake: jl7 800ml 12:10 Drug: SOLU-Medrol (methylPrednisoLONE) 125 mg Route: IVP; Site: right hand; jl7 13:22 Follow up: Response: No adverse reaction jl7 12:12 Drug: Pepcid (famotidine) 20 mg Route: IVP; Site: right hand; jl7 13:22 Follow up: Response: No adverse reaction jl7 Disposition: 17:13 Co-signature as Attending Physician, Sabina Amador MD. ma2 Disposition Summary: 12/04/20 13:07 Discharge Ordered Location: Home kb Condition: Stable kb Diagnosis - Insect allergy status - wasp kb - Insect bite (nonvenomous) of left upper arm kb - Insect bite (nonvenomous) of left forearm kb Followup: kb - With: Emergency Department - When: As needed - Reason: Worsening of condition Followup: kb - With: Private Physician - When: 2 - 3 days - Reason: Recheck today's complaints, Continuance of care, Re-evaluation by your physician Discharge Instructions: - Discharge Summary Sheet kb - Bee, Wasp, or Hornet Sting, Adult kb Forms: - Medication Reconciliation Form kb - Thank You Letter kb - Antibiotic Education kb - Prescription Opioid Use kb Prescriptions: - Pepcid 20 mg Oral Tablet - take 1 tablet by ORAL route every 12 hours for 5 days; 10 tablet; Refills: 0, kb Product Selection Permitted - Prednisone 20 mg Oral Tablet - take 1 tablet by ORAL route once daily for 5 days; 5 tablet; Refills: 0, kb Product Selection Permitted Signatures: Blanquita Cowan, MARIETTAC INSTRUMENTAL TEACHER-Aisha Nichols, RN Jay Jay Sierra RN RN jl7 Alzahri, Mohammad, MD MD ma2 Corrections: (The following items were deleted from the chart) 11:40 11:39 Allergies: Bees; iw iw
[2020-12-06 17:05] VITALS: TEMP 98.1
[2020-12-06 17:09] VITALS: BP 111/60; O2SAT 99
== END 2020-12-04 13:23 | disposition home or self-care (01) ==
LOC: ER 11:00
DX: T63.461A Toxic effect of venom of wasps, accidental (unintentional), initial encounter (principal); Z91.038 Other insect allergy status; I10 Essential (primary) hypertension; Z86.73 Personal history of transient ischemic attack (TIA), and cerebral infarction without residual deficits; Z79.01 Long term (current) use of anticoagulants
CPT/HCPCS: 96361; 96375; 96374; 99284; J7030; J2930

== ENCOUNTER 2020-12-12 19:57 | Emergency (ER) | payer OTHER, SELFPAY ==
--- OUTSIDE RECORDS SUMMARY | 2020-12-12 20:00 | XMS REPORT | Continuity of Care Document ---
:1975 Author Organization [facility] t Address [address] [place] [address] Dr. Peacock [address] [place] [id number] Care Team Providers Name Role Phone Unavailable Unavailable Unavailable Problems This patient has no known problems. Allergies, Adverse Reactions, Alerts This patient has no known allergies or adverse reactions. Medications This patient has no known medications. Procedures This patient has no known procedures. Results This patient has no known results.
--- NOTE | 2020-12-13 | ER ---
Nurse's Notes [facility] Name: Bartolo Phelps Age: 45 yrs Sex: Male : 1975 Arrival Date: 12/12/2020 Time: 20:08 Bed DIS2 Private MD: Diagnosis: Coronavirus infection, unspecified-covid 19;Headache;Bronchitis, not specified as acute or chronic Presentation: 12/12 21:44 Chief complaint: Patient states: Shortness of breath and headache began Saturday, vg1 12/09/20. Saturday had a low grade temperature all day. Took 1 g Tylenol today around 1900. Pt stated had diarrhea today. Has been taking Mucinex and [place]. Coronavirus screen: Client denies travel out of the [place] in the last 14 days. Client presents with at least one sign or symptom that may indicate coronavirus-19. Standard/surgical mask placed on the client. Ebola Screen: Patient negative for fever greater than or equal to 101.5 degrees Fahrenheit, and additional compatible Ebola Virus Disease symptoms. Initial Sepsis Screen: Does the patient meet any 2 criteria? No. Patient's initial sepsis screen is negative. Does the patient have a suspected source of infection? No. Patient's initial sepsis screen is negative. Risk Assessment: Do you want to hurt yourself or someone else? Patient reports no desire to harm self or others. Onset of symptoms was December 09, 2020. 21:44 Method Of Arrival: Ambulatory vg1 21:44 Acuity: FAISAL 3 vg1 Triage Assessment: 21:52 General: Appears in no apparent distress. comfortable, Behavior is calm, cooperative. vg1 Pain: Complains of pain in mid-sternal area Pain currently is 10 out of 10 on a pain scale. Respiratory: Reports shortness of breath on exertion cough that is productive, pain with cough the patient has moderate shortness of breath. Historical: - Allergies: 21:52 Wasps; vg1 - Home Meds: 21:52 atorvastatin 40 mg Oral tab 1 tab once daily [Active]; gabapentin Oral [Active]; vg1 lisinopril Oral [Active]; Plavix 75 mg Oral tab 1 tab once daily [Active]; - PMHx: 21:52 CVA x3; Hypercholesterolemia; Hypertension; TIA; vg1 - Immunization history:: Adult Immunizations up to date. - Social history:: Smoking status: Patient denies any tobacco usage or history of. - Family history:: not pertinent. Vital Signs: 21:44 BP 118 / 71; Pulse 90; Resp 20; Temp 98.9(O); Pulse Ox 100% ; Weight 110.22 kg; Height vg1 6 ft. 1 in. (185.42 cm); Pain 10/10; 21:44 Body Mass Index 32.06 (110.22 kg, 185.42 cm) vg1 ED Course: 20:08 Patient arrived in ED. es 21:52 Triage completed. vg1 21:52 Arm band placed on. vg1 22:13 Chest Single View XRAY In Process Unspecified. EDTX 23:43 Niko Ricketts MD is Attending Physician. bernardo 23:59 Mt Benites MD is Referral Physician. [facility] Administered Medications: 12/13 00:21 Drug: Motrin (ibuprofen) 800 mg Route: PO; bb 00:21 Drug: Zithromax (azithromycin) 500 mg Route: PO; bb 00:21 Drug: Dexamethasone 10 mg Route: IM; Site: left vastus lateralis; bb 00:21 Drug: Pepcid (famotidine) 20 mg Route: PO; bb 00:21 Drug: Aspirin Chewable Tablet 81 mg Route: PO; bb Outcome: 12/12 23:59 Discharge ordered by . bernardo 12/13 00:12 Patient left the ED. tt3 Signatures: Dispatcher [employer] EDTX Niko Ricketts MD MD cha Salyer, Edna es Ballard, Brenda RN Marybeth Chatman RN RN vg1 Norman Dickson tt3
--- NOTE | 2020-12-13 | EDPHYS ---
Physician Documentation [facility] Name: Bartolo Phelps Age: 45 yrs Sex: Male : 1975 Arrival Date: 12/12/2020 Time: 20:08 Bed DIS2 Private MD: ED Physician Niko Ricketts HPI: 12/12 23:55 This 45 yrs old Male presents to ER via Ambulatory with complaints of bernardo Shortness Of Breath, Headache. 23:55 The patient has shortness of breath at rest, with light activity. Onset: The bernardo symptoms/episode began/occurred 5 day(s) ago. Duration: The symptoms are continuous, and are steadily getting worse. The patient's shortness of breath has no apparent modifying factors. Associated signs and symptoms: Pertinent positives: non-productive cough, dizziness. Severity of symptoms: At their worst the symptoms were mild in the emergency department the symptoms are unchanged. The patient has not experienced similar symptoms in the past. Historical: - Allergies: 21:52 Wasps; vg1 - Home Meds: 21:52 atorvastatin 40 mg Oral tab 1 tab once daily [Active]; gabapentin Oral [Active]; vg1 lisinopril Oral [Active]; Plavix 75 mg Oral tab 1 tab once daily [Active]; - PMHx: 21:52 CVA x3; Hypercholesterolemia; Hypertension; TIA; vg1 - Immunization history:: Adult Immunizations up to date. - Social history:: Smoking status: Patient denies any tobacco usage or history of. - Family history:: not pertinent. ROS: 23:55 Constitutional: Negative for fever, chills, and weight loss, Eyes: Negative for injury, bernardo pain, redness, and discharge, ENT: Negative for injury, pain, and discharge, Neck: Negative for injury, pain, and swelling, Cardiovascular: Negative for chest pain, palpitations, and edema, Abdomen/GI: Negative for abdominal pain, nausea, vomiting, diarrhea, and constipation, Back: Negative for injury and pain, : Negative for injury, bleeding, discharge, and swelling, MS/Extremity: Negative for injury and deformity, Skin: Negative for injury, rash, and discoloration, Neuro: Negative for headache, weakness, numbness, tingling, and seizure, Psych: Negative for depression, anxiety, suicide ideation, homicidal ideation, and hallucinations, Allergy/Immunology: Negative for hives, rash, and allergies, Endocrine: Negative for neck swelling, polydipsia, polyuria, polyphagia, and marked weight changes, Hematologic/Lymphatic: Negative for swollen nodes, abnormal bleeding, and unusual bruising. 23:55 Respiratory: Positive for cough, with no reported sputum. Exam: 23:55 Constitutional: This is a well developed, well nourished patient who is awake, alert, bernardo and in no acute distress. Head/Face: Normocephalic, atraumatic. Eyes: Pupils equal round and reactive to light, extra-ocular motions intact. Lids and lashes normal. Conjunctiva and sclera are non-icteric and not injected. Cornea within normal limits. Periorbital areas with no swelling, redness, or edema. ENT: Nares patent. No nasal discharge, no septal abnormalities noted. Tympanic membranes are normal and external auditory canals are clear. Oropharynx with no redness, swelling, or masses, exudates, or evidence of obstruction, uvula midline. Mucous membranes moist. Neck: Trachea midline, no thyromegaly or masses palpated, and no cervical lymphadenopathy. Supple, full range of motion without nuchal rigidity, or vertebral point tenderness. No Meningismus. Chest/axilla: Normal chest wall appearance and motion. Nontender with no deformity. No lesions are appreciated. Cardiovascular: Regular rate and rhythm with a normal S1 and S2. No gallops, murmurs, or rubs. Normal PMI, no JVD. No pulse deficits. Respiratory: Lungs have equal breath sounds bilaterally, clear to auscultation and percussion. No rales, rhonchi or wheezes noted. No increased work of breathing, no retractions or nasal flaring. Abdomen/GI: Soft, non-tender, with normal bowel sounds. No distension or tympany. No guarding or rebound. No evidence of tenderness throughout. Back: No spinal tenderness. No costovertebral tenderness. Full range of motion. Male : Normal genitalia with no discharge or lesions. Skin: Warm, dry with normal turgor. Normal color with no rashes, no lesions, and no evidence of cellulitis. MS/ Extremity: Pulses equal, no cyanosis. Neurovascular intact. Full, normal range of motion. Neuro: Awake and alert, GCS 15, oriented to person, place, time, and situation. Cranial nerves II-XII grossly intact. Motor strength 5/5 in all extremities. Sensory grossly intact. Cerebellar exam normal. Normal gait. Psych: Awake, alert, with orientation to person, place and time. Behavior, mood, and affect are within normal limits. Vital Signs: 21:44 BP 118 / 71; Pulse 90; Resp 20; Temp 98.9(O); Pulse Ox 100% ; Weight 110.22 kg; Height vg1 6 ft. 1 in. (185.42 cm); Pain 10/10; 21:44 Body Mass Index 32.06 (110.22 kg, 185.42 cm) vg1 MDM: 23:43 Patient medically screened. bernardo 23:56 Differential diagnosis: CHF exacerbation, Chronic Obstructive Pulmonary Disease bernardo Myocardial Infarction pneumonia, Pneumothorax reactive airway disease. Antibiotic administration: The patient is discharged and will get outpatient antibiotics, Zithromax. The patient's Wells Deep Vein Thrombosis Score was calculated as follows: Total Score: 0-2 Pts- Low Risk. The patient's pulmonary embolism risk score was calculated as follows: Total Score: 0-2 points. This patient was found to be at low risk for a pulmonary embolism by using the Well's assessment criteria. Immunization status:. Data reviewed: vital signs, nurses notes, lab test result(s), covid positive. Data interpreted: equipment monitor phototypesetting: rate is 90 beats/min, rhythm is regular, Pulse oximetry: is not applicable for this patient encounter. Test interpretation: by ED physician or midlevel provider: plain radiologic studies. 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 12/12 23:03 Order name: SARS-COV-2 RT PCR; Complete Time: 23:53 EDMS 12/12 21:56 Order name: Chest Single View XRAY vg1 Administered Medications: 12/13 00:21 Drug: Motrin (ibuprofen) 800 mg Route: PO; bb 00:21 Drug: Zithromax (azithromycin) 500 mg Route: PO; bb 00:21 Drug: Dexamethasone 10 mg Route: IM; Site: left vastus lateralis; bb 00:21 Drug: Pepcid (famotidine) 20 mg Route: PO; bb 00:21 Drug: Aspirin Chewable Tablet 81 mg Route: PO; bb Disposition Summary: 12/12/20 23:59 Discharge Ordered Location: Home [facility] Problem: [facility] Symptoms: have improved bernardo Condition: Stable bernardo Diagnosis - Coronavirus infection, unspecified - covid 19 bernardo - Headache bernardo - Bronchitis, not specified as acute or chronic bernardo Followup: bernardo - With: Private Physician - When: 2 - 3 days - Reason: Recheck today's complaints, Continuance of care, Re-evaluation by your physician Followup: [facility] - With: Mt Benites MD - When: 2 - 3 days - Reason: Recheck today's complaints, Re-evaluation by your physician Discharge Instructions: - Discharge Summary Sheet [facility] - Acute Bronchitis, Adult [facility] - Cough, Adult, [id number] [facility] - Viral Respiratory Infection, [id number] [facility] - Aspirin and Your Heart [facility] - Cough, Adult [facility] - COVID-19 [facility] Forms: - Medication Reconciliation Form [facility] - Thank You Letter [facility] - Antibiotic Education [facility] - Prescription Opioid Use [facility] Prescriptions: - dexamethasone 2 mg Oral tablet - take 1 tablet by ORAL route 3 times per day; 15 tablet; Refills: 0, Product [facility] Selection Permitted - ivermectin 3 mg Oral tablet - take 4 tablet by ORAL route once daily; 20 tablet; Refills: 0, Product [facility] Selection Permitted - Ibuprofen 600 mg Oral Tablet - take 1 tablet by ORAL route every 6 hours As needed take with food; 30 tablet; [facility] Refills: 0, Product Selection Permitted - Pepcid 20 mg Oral Tablet - take 1 tablet by ORAL route every 12 hours for 15 days; 30 tablet; Refills: 0, [facility] Product Selection Permitted - Zithromax 500 mg Oral Tablet - take 1 tablet by ORAL route once daily for 5 days; 5 tablet; Refills: 0, [facility] Product Selection Permitted Signatures: Dispatcher [employer] Niko Gonsales MD MD cha Ballard, Brenda RN RN Marybeth Curtis RN RN vg1 Corrections: (The following items were deleted from the chart) 12/12 21:58 21:52 CORONAVIRUS+Z ordered. EDCA EDMS
[2020-12-13] MEDS ORDERED: AZITHROMYCIN 250 MG TAB ONE (00:37)
[2020-12-13] MEDS ORDERED: dexAMETHasone 10 MG/ML VIAL ONE (00:37)
[2020-12-13] MEDS ORDERED: ASPIRIN EC 81 MG TAB PO ONE (00:37)
[2020-12-13] MEDS ORDERED: FAMOTIDINE 20 MG TAB ONE (00:38)
[2020-12-13] MEDS ORDERED: IBUPROFEN 400 MG TAB ONE (00:38)
[2020-12-13 00:45] VITALS: BP 118/71; TEMP 98.9; O2SAT 100
--- NOTE | 2020-12-13 07:21 | RAD REPORT ---
EXAM DESCRIPTION: RAD - Chest Single View - 12/12/2020 10:13 pm CLINICAL HISTORY: COUGH COMPARISON: Chest Single View dated 11/25/2020; Chest Single View dated 10/14/2017; Chest Single View d ated 03/27/2016 FINDINGS: No evidence of edema or pneumonia. The heart size is within normal limits.No acute osseous abnormality. No significant pleural effusions or pneumothorax. IMPRESSION: No acute cardiopulmonary disease.
== END 2020-12-13 00:12 | disposition home or self-care (01) ==
LOC: ER 19:57
DX: U07.1 COVID-19 (principal); J40 Bronchitis, not specified as acute or chronic; I10 Essential (primary) hypertension; Z86.73 Personal history of transient ischemic attack (TIA), and cerebral infarction without residual deficits; Z79.01 Long term (current) use of anticoagulants; Z91.038 Other insect allergy status
CPT/HCPCS: 71045; U0003; J1100; 96372; 99283

== ENCOUNTER 2021-12-03 09:43 | Emergency (ER) | payer OTHER ==
--- OUTSIDE RECORDS SUMMARY | 2021-12-03 09:45 | XMS REPORT | Continuity of Care Document ---
:1975 Author Organization [facility] t Address [address] [place] [address] Dr. Peacock [address] [place] [address] Care Team Providers Name Role Phone Brandon GREER APRN Primary Care Physician BRANDON Attending Clinician Unavailable Payers Payer Name Policy Type Policy Number Effective Date Expiration Date S ource GENERIC OTHER [id number] 2021 00:00:00 MULTIPLAN [id number] 2021 00:00:00 Problems Condition Condition Condition Status Onset Resolution Last Treating Co mments Source Name Details Category Date Date Treatment Clinician Date No known No known Disease [facility] active active Health problems problems Allergies, Adverse Reactions, Alerts This patient has no known allergies or adverse reactions. Social History Social Habit Start Date Stop Date Quantity Comments Source Tobacco use and 2021-09-20 2021-09-20 Former smokeless [facility] exposure 00:00:00 00:00:00 tobacco user Sex Assigned At [birth year] [facility] 00:00:00 00:00:00 Smoking Status Start Date Stop Date Source Tobacco smoking consumption unknown [facility] Ex-smoker 2021-09-20 00:00:00 2021-09-20 00:00:00 [facility] Medications Ordered Filled Start Stop Current Ordering Indication Dosage Frequency Signature Comments Components Source Medication Medication Date Date Medication? Clinician (SIG) Name Name atorvastati Yes [id number] 40mg QD Take 1 [facility] n (Lipitor) 5-11 tablet (40 He alth 40 MG 00:00: mg total) tablet 00 by mouth 1 (one) time each day. clopidogrel 2022- Yes [id number] 75mg QD Take 1 [facility] (Plavix) 75 5-11 05-12 tablet (75 H ealth MG tablet 00:00: 04:59 mg total) 00 :00 by mouth 1 (one) time each day. lisinopril 2021- Yes [id number] 10mg QD Take 1 UT 10 MG 5-11 06-11 tablet (10 Health tablet 00:00: 04:59 mg total) 00 :00 by mouth 1 (one) time each day. lisinopril 2021- Yes [id number] 10mg QD Take 1 UT 10 MG 5-02 06-02 tablet (10 Health tablet 00:00: 04:59 mg total) 00 :00 by mouth 1 (one) time each day. lisinopril 2021- No [id number] 10mg QD Take 1 UT 10 MG 5-06 17-11 tablet (10 Health tablet 00:00: 00:00 mg total) 00 :00 by mouth 1 (one) time each day. traMADol-ac Yes 1{tbl} Q.5D Take 1 UT etaminophen 6-08 tablet by Hea lt (UltraCET) 00:00: mouth 2 37.5-325 MG 00 (two) tablet times a day if needed. Cyanocobala Yes TAKE 1 UT min 5-06 TABLET Health (Vitamin 00:00: DAILY B12) 1000 00 DIRECTED. MCG tablet controlled- release Ascorbic Yes 1000mg 1,000 mg. UT Acid 5-06 Health (vitamin C) 00:00: 1000 MG 00 tablet atorvastati 2015-05- No 1{tbl} QD Take 1 U T n (Lipitor) 2-01 05-11 tablet by He alth 40 MG 00:00: 00:00 mouth 1 tablet 00 :00 (one) time each day. gabapentin Yes TAKE 2 UT (Neurontin) 2-26 CAPSULE 3 Hea lth 300 MG 00:00: TIMES capsule 00 DAILY lisinopril 2021- No 1{tbl} QD Take 1 UT 10 MG 8-28 05-02 tablet by Health tablet 00:00: 00:00 mouth 1 00 :00 (one) time each day. Vital Signs Vital Name Observation Time Observation Value Comments Source Systolic blood pressure 2021-09-20 13:30:00 143 mm[Hg] [facility] Diastolic blood pressure 2021-09-20 13:30:00 79 mm[Hg] [facility] Heart rate 2021-09-20 13:30:00 65 /min [facility] Body temperature 2021-09-20 13:30:00 36.22 Renetta [facility] Respiratory rate 2021-09-20 13:30:00 18 /min [facility] ealt Body height 2021-09-20 13:30:00 185.4 cm [facility] Body weight 2021-09-20 13:30:00 105.688 kg [facility] BMI 2021-09-20 13:30:00 30.74 kg/m2 [facility] Oxygen saturation in 2021-09-20 13:30:00 99 /min [facility] Arterial blood by Pulse oximetry Procedures This patient has no known procedures. Encounters Start End Encounter Admission Attending Care Care Encounter Source Date/Time Date/Time Type Type Clinicians Facility Department ID 2021-09-25 Outpatient [facility] [id number] [place] 14:35:16 [id number] [facility] 2021-09-20 [id number] [place] 07:59:46 MUNKA[place]HIK [id number] [facility] 2021-09-15 [facility] [id number] [place] 13:38:40 MUNACHI [id number] [facility] 2021-09-20 2021-09-20 Office Brandon [facility] [id number] [place] 08:30:00 09:38:[address] [id number] Health [id number] 2021-09-11 2021-09-11 Telephone Brandon [facility] 6410 [id number] [place] 00:00:00 00:00:[address] [id number] Health [id number] Results This patient has no known results.
--- NOTE | 2021-12-03 11:08 | RAD REPORT ---
EXAM DESCRIPTION: RAD - Knee Right 3 View - 12/03/2021 11:02 am CLINICAL HISTORY: PAIN COMPARISON: No comparisons FINDINGS/IMPRESSION: No acute fracture. No malalignment. Mild to moderate medial compartment narrowi ng. Patellofemoral compartment and lateral compartment spurring.
--- NOTE | 2021-12-03 11:27 | EDPHYS ---
Physician Documentation [facility] Name: Bartolo Phelps Age: 46 yrs Sex: Male : 1975 Arrival Date: 12/03/2021 Time: 09:43 Bed 12 Private MD: ED Physician Tierra Hsieh HPI: 12/03 10:25 This 46 yrs old Male presents to ER via Ambulatory with complaints of Knee cp Pain. 10:25 The patient presents with pain. The complaints affect the right knee. cp 10:25 Context: resulted from an unknown cause, the patient can fully bear weight, the patient cp is able to ambulate, with mild difficulty. Onset: The symptoms/episode began/occurred 2 day(s) ago. Modifying factors: the symptoms are aggravated by weight bearing, bending knee. Associated signs and symptoms: The patient has no apparent associated signs or symptoms. Patient reports that he has seen ortho in the past for right knee pain and partial knee replacement surgery was offered, patient refused at that time. Denies any recent injury. Historical: - Allergies: 10:16 Wasps; ap3 - Home Meds: 10:18 Plavix 75 mg Oral tab 1 tab once daily [Active]; gabapentin Oral [Active]; atorvastatin ap3 40 mg Oral tab 1 tab once daily [Active]; Tramadol Oral as needed for pain [Active]; - PMHx: 10:16 CVA x3; Hypercholesterolemia; Hypertension; TIA; ap3 - Immunization history:: Client reports having NOT received the Covid vaccine. - Social history:: Smoking status: Patient reports use of chewing tobacco. Patient uses alcohol, occasionally. ROS: 10:30 MS/extremity: Positive for pain, of the right knee, Negative for injury or acute cp deformity, decreased range of motion, paresthesias. Exam: 10:35 Constitutional: The patient appears in no acute distress, alert, awake, non-toxic, well cp developed, well nourished. 10:35 Head/Face: Normocephalic, atraumatic. cp 10:35 Eyes: Periorbital structures: appear normal, Conjunctiva: normal, no exudate, no cp injection, Sclera: no appreciated abnormality, Lids and lashes: appear normal, bilaterally. 10:35 Neck: ROM/movement: is normal, is supple, without pain, no range of motions limitations. 10:35 Chest/axilla: Inspection: normal. 10:35 Cardiovascular: Rate: normal. 10:35 Respiratory: the patient does not display signs of respiratory distress, Respirations: normal, no use of accessory muscles, no retractions, labored breathing, is not present. 10:35 Abdomen/GI: Exam negative for discomfort, distension, guarding, Inspection: abdomen cp appears normal. 10:35 Back: pain, is absent, ROM is normal. 10:35 Musculoskeletal/extremity: Extremities: noted in the right knee: pain, tenderness along lateral joint line, full AROM, minimal swelling noted, no effusion, no ligament instability. Vital Signs: 10:13 BP 155 / 92; Pulse 66; Resp 17; Temp 99.1; Pulse Ox 100% ; Weight 99.79 kg; Height 6 ap3 ft. 1 in. (185.42 cm); 10:13 Pain 8/10; ap3 10:13 Body Mass Index 29.03 (99.79 kg, 185.42 cm) ap3 MDM: 10:45 Differential diagnosis: closed fracture, tendonitis. cp 10:58 Patient medically screened. cp 11:25 Data reviewed: vital signs, nurses notes, radiologic studies, plain films. cp 11:25 Test interpretation: by ED physician or midlevel provider: plain radiologic studies. cp Counseling: I had a detailed discussion with the patient and/or guardian regarding: the historical points, exam findings, and any diagnostic results supporting the discharge/admit diagnosis, radiology results, the need for outpatient follow up, for definitive care, a orthopedic surgeon, to return to the emergency department if symptoms worsen or persist or if there are any questions or concerns that arise at home. 12/03 10:15 Order name: XRAY Knee RIGHT 3 view cp Administered Medications: 11:02 Drug: Ibuprofen 800 mg Route: PO; ap3 11:40 Follow up: Response: No adverse reaction jl7 11:02 Drug: Tylenol 650 mg Route: PO; ap3 11:40 Follow up: Response: No adverse reaction jl7 Disposition Summary: 12/03/21 11:26 Discharge Ordered Location: Home cp Problem: an ongoing problem cp Symptoms: have improved cp Condition: Stable cp Diagnosis - Pain in right knee cp Followup: cp - With: Bartolo Chaney MD - When: 2 - 3 days - Reason: Worsening of condition Discharge Instructions: - Discharge Summary Sheet cp - How to Use a Knee Brace cp - Chronic Knee Pain, Adult cp Forms: - Medication Reconciliation Form cp - Thank You Letter cp - Antibiotic Education cp - Prescription Opioid Use cp Prescriptions: - Diclofenac Sodium 75 mg Oral Tablet Sustained Release - take 1 tablet by ORAL route 2 times per day; 30 tablet; Refills: 0, Product cp Selection Permitted - Tramadol 50 mg Oral Tablet - take 1 tablet by ORAL route every 8 hours as needed; 12 tablet; Refills: 0, cp Product Selection Permitted Signatures: Dispatcher [employer] EDMS Niko Briones PA PA cp Prokisch, Amanda RN RN ap3 Jay Jay Nazario RN jl7
--- NOTE | 2021-12-03 11:27 | ER ---
Nurse's Notes [facility] Name: Bartolo Phelps Age: 46 yrs Sex: Male : 1975 Arrival Date: 12/03/2021 Time: 09:43 Bed 12 Private MD: Diagnosis: Pain in right knee Presentation: 12/03 10:13 Chief complaint: Patient states: he has a hx of rt knee pain. patient states that he ap3 started having rt knee pain again Saturday12/01/2021, but denies any recent trauma to the area. patient reports he has been informed he is in need of a knee replacement. Coronavirus screen: At this time, the client does not indicate any symptoms associated with coronavirus-19. Ebola Screen: No symptoms or risks identified at this time. Initial Sepsis Screen: Does the patient meet any 2 criteria? No. Patient's initial sepsis screen is negative. Does the patient have a suspected source of infection? No. Patient's initial sepsis screen is negative. Risk Assessment: Do you want to hurt yourself or someone else? Patient reports no desire to harm self or others. Onset of symptoms was December 01, 2021. 10:13 Method Of Arrival: Ambulatory ap3 10:13 Acuity: FAISAL 4 ap3 Triage Assessment: 10:16 General: Appears in no apparent distress. Behavior is calm, cooperative, appropriate ap3 for age. Pain: Complains of pain in right knee Pain currently is 8 out of 10 on a pain scale. Pain began gradually, years ago. Neuro: Level of Consciousness is awake, alert, obeys commands, Oriented to person, place, time, situation. Cardiovascular: Patient's skin is warm and dry. Respiratory: Airway is patent Respiratory effort is even, unlabored. Musculoskeletal: Reports pain in right knee. Historical: - Allergies: 10:16 Wasps; ap3 - Home Meds: 10:18 Plavix 75 mg Oral tab 1 tab once daily [Active]; gabapentin Oral [Active]; atorvastatin ap3 40 mg Oral tab 1 tab once daily [Active]; Tramadol Oral as needed for pain [Active]; - PMHx: 10:16 CVA x3; Hypercholesterolemia; Hypertension; TIA; ap3 - Immunization history:: Client reports having NOT received the Covid vaccine. - Social history:: Smoking status: Patient reports use of chewing tobacco. Patient uses alcohol, occasionally. Screenin:17 Abuse screen: Denies threats or abuse. Nutritional screening: No deficits noted. ap3 Tuberculosis screening: No symptoms or risk factors identified. 11:03 Fall Risk Fall in past 12 months (25 points). Secondary diagnosis (15 points) impaired ap3 mobility, No IV (0 pts). Ambulatory Aid- None/Bed Rest/Nurse Assist (0 pts). Gait- Weak (10 pts.). Mental Status- Oriented to own ability (0 pts). Total Rodriguez Fall Scale indicates Low Risk Score (25-44 pts). Assessment: 11:02 Reassessment: Patient and/or family updated on plan of care and expected duration. Pain ap3 level reassessed. Patient is alert, oriented x 3, equal unlabored respirations, skin warm/dry/pink. General: Appears in no apparent distress. comfortable. Pain: Complains of pain in right knee. Neuro: Level of Consciousness is awake, alert, obeys commands, Oriented to person, place, time. Cardiovascular: Patient's skin is warm and dry. Respiratory: Airway is patent Respiratory effort is even, unlabored. Vital Signs: 10:13 BP 155 / 92; Pulse 66; Resp 17; Temp 99.1; Pulse Ox 100% ; Weight 99.79 kg; Height 6 ap3 ft. 1 in. (185.42 cm); 10:13 Pain 8/10; ap3 10:13 Body Mass Index 29.03 (99.79 kg, 185.42 cm) ap3 ED Course: 09:43 Patient arrived in ED. as 09:50 Niko Briones PA is PHCP. cp 09:50 Tierra Hsieh is Attending Physician. cp 10:15 Triage completed. ap3 10:17 Arm band placed on left wrist. ap3 11:02 Violeta Leo, KELSIE is Primary Nurse. ap3 11:03 Patient has correct armband on for positive identification. Bed in low position. Call ap3 light in reach. Side rails up X 1. Pulse ox on. NIBP on. Door closed. Noise minimized. 11:04 XRAY Knee RIGHT 3 view In Process Unspecified. EDMS 11:25 Bartolo Chaney MD is Referral Physician. cp 11:40 No provider procedures requiring assistance completed. Patient did not have IV access jl7 during this emergency room visit. Administered Medications: 11: Drug: Ibuprofen 800 mg Route: PO; ap3 11:40 Follow up: Response: No adverse reaction jl7 11:02 Drug: Tylenol 650 mg Route: PO; ap3 11:40 Follow up: Response: No adverse reaction jl7 Medication: 11:40 VIS not applicable for this client. jl7 Outcome: 11: Discharge ordered by . alexis 11:40 Discharged to home ambulatory. jl7 11:40 Condition: stable 11:40 Discharge instructions given to patient, Instructed on discharge instructions, follow up and referral plans. medication usage, Demonstrated understanding of instructions, follow-up care, medications, Prescriptions given X 2. 11:41 Patient left the ED. jl7 Signatures: Dispatcher [employer] EDMS Sylvie Garcia Corey, Jay Jay Ortiz cp, RN RN jl7 Violeta Leo RN RN ap3
[2021-12-03 11:55] VITALS: BP 155/92; TEMP 99.1; O2SAT 100
== END 2021-12-03 11:41 | disposition home or self-care (01) ==
LOC: ER 09:43
DX: M25.561 Pain in right knee (principal); I10 Essential (primary) hypertension; F17.220 Nicotine dependence, chewing tobacco, uncomplicated; Z86.73 Personal history of transient ischemic attack (TIA), and cerebral infarction without residual deficits; Z79.01 Long term (current) use of anticoagulants; Z91.038 Other insect allergy status
CPT/HCPCS: 99284

== ENCOUNTER 2022-12-18 07:59 | Emergency (ER) | payer OTHER, SELFPAY ==
--- OUTSIDE RECORDS SUMMARY | 2022-12-18 08:04 | XMS REPORT | Continuity of Care Document ---
:1975 Author Organization [facility] t Address [address] [place] [address] Care Team Providers Name Role Phone Brandon GREER APRN, [place] Primary Care Physician [phone] [address] Attending Clinician Unavailable GEOVANNA CRANDALL Attending Clinician Unavailable Geovanna Crandall DO Attending Clinician Payers Payer Name Policy Type Policy Number Effective Date Expiration Date S ource GENERIC OTHER [id number] 2021 2022 00:00:00 00:00:00 COMMERCIAL [id number] 2022 NON-CONTRACT 00:00:00 GENERIC Problems Condition Condition Condition Status Onset Resolution Last Treating Co mments Source Name Details Category Date Date Treatment Clinician Date Right knee Right knee Disease Active 2015-0 U [facility]ivers pain pain 4-18 ity of 00:00: [address] Knee pain, Knee pain, Disease Active 2014- U nivers chronic, chronic, 0-26 ity of left left 00:00: [address] No known No known Disease [place] active active Health problems problems Allergies, Adverse Reactions, Alerts Allergy Allergy Status Severity Reaction(s) Onset Inactive Treating Comm ents Source Name Type Date Date Clinician NO KNOWN Drug Active Univers ALLERGIE Class ity of S [facility] Social History Social Habit Start Date Stop Date Quantity Comments Source Alcohol intake 2022-02-13 2022-02-13 0 /d [facility] 00:00:00 00:00:00 [facility] Tobacco use and 2018-05-09 2018-05-09 Smokeless tobacco Un iversity of exposure 00:00:00 00:00:00 non-user [facility] Sex Assigned At [birth year] Universit y of 00:00:00 00:00:00 [facility] Smoking Status Start Date Stop Date Source Tobacco smoking [facility] consumption unknown Ex-smoker 2021-09-20 00:00:00 2021-09-20 [facility] 00:00:00 Never smoked tobacco [facility] Medications Ordered Filled Start Stop Current Ordering Indication Dosage Frequency Signature Comments Components Source Medication Medication Date Date Medication? Clinician (SIG) Name Name famotidine 2021-05 No 20mg 20 mg, Univ ers (PEPCID 0-08 20- Slow IV ity of (PF)) 19:30: 18:52 Push, [place] injection 00 :00 ONCE, 1 Medical 20 mg dose, On Branch 02/13/22 at 1430, Routine methylpredn 2021-05 No 125mg 125 mg, U nivers isolone sod 0-08 20- Intravenou i ty of succ 19:15: 18:52 s, ONCE, 1 [place] (SOLU-MEDRO 00 :00 dose, On Medi zen L) Tue Branch injection 02/13/22 at 125 mg 1415, 2 mL predniSONE 2021-05- No [id number] 50mg Take 5 Univers 10 mg 0- 10-09 tablets by ity of tablet 00:00: 04:59 mouth in [place] 00 :00 the [facility] Branch for 4 days. atorvastati Yes [id number] 40mg QD Take 1 UT n (Lipitor) 5-11 tablet (40 He alth 40 MG 00:00: mg total) tablet 00 by mouth 1 (one) time each day. clopidogrel 2022- No [id number] 75mg QD Take 1 UT (Plavix) 75 5-11 05-12 tablet (75 H ealth MG tablet 00:00: 04:59 mg total) 00 :00 by mouth 1 (one) time each day. lisinopril 2021- No [id number] 10mg QD Take 1 UT 10 MG 5-11 06-11 tablet (10 Health tablet 00:00: 04:59 mg total) 00 :00 by mouth 1 (one) time each day. lisinopril 2021- No [id number] 10mg QD Take 1 UT 10 MG 5- 06- tablet (10 Health tablet 00:00: 04:59 mg total) 00 :00 by mouth 1 (one) time each day. lisinopril 2021- No [id number] 10mg QD Take 1 UT 10 MG 5- 05-11 tablet (10 Health tablet 00:00: 00:00 mg total) 00 :00 by mouth 1 (one) time each day. traMADol-ac Yes 1{tbl} Q.5D Take 1 UT etaminophen 6-08 tablet by [facility] (UltraCET) 00:00: mouth 2 37.5-325 MG 00 (two) tablet times a day if needed. Cyanocobala Yes TAKE 1 UT min 5-06 TABLET Health (Vitamin 00:00: DAILY B12) 1000 00 DIRECTED. MCG tablet controlled- release Ascorbic Yes 1000mg 1,000 mg. UT Acid 5-06 Health (vitamin C) 00:00: 1000 MG 00 tablet atorvastati 2015-05- No 1{tbl} QD Take 1 U T n (Lipitor) 2- 05-11 tablet by [facility] 40 MG 00:00: 00:00 mouth 1 tablet 00 :00 (one) time each day. OMEGA-3S/DH Yes Take by Uni vers A/EPA/FISH 4-18 mouth. ity of OIL (OMEGA 13:03: [place] 3 ORAL) 53 Medical Branch HYDROcodone Yes Univer s -acetaminop 4-14 ity of hen (NORCO) 00:00: [place] 7.5-325 mg 00 Medical per tablet Branch lidocaine 5 Yes Univer s % ointment 3-28 ity of 00:00: [place] 00 Medical Branch diclofenac Yes Univers (SOLARAZE) 3-28 ity of 3 % gel 00:00: [place] 00 Medical Branch gabapentin Yes Univers (NEURONTIN) 3-16 ity of 300 mg 00:00: [place] capsule 00 Medical Branch gabapentin Yes TAKE 2 UT (Neurontin) 2-26 CAPSULE 3 Hea lt 300 MG 00:00: TIMES capsule 00 DAILY lisinopril Yes Univers (PRINIVIL,Z 8- ity of ESTRIL) 10 00:00: [place] mg tablet 00 [facility] pravastatin Yes Univer s (PRAVACHOL) 01-07 ity of 20 mg 00:00: [place] tablet 00 Medical [place] lisinopril 2021- No 1{tbl} QD Take 1 UT 10 MG 01-07 tablet by Health tablet 00:00: 00:00 mouth 1 00 :00 (one) time each day. Vital Signs Vital Name Observation Time Observation Value Comments Source Body height 2022-02-13 17:57:00 185.4 cm [facility] Body weight 2022-02-13 17:57:00 108.863 kg [facility] BMI 2022-02-13 17:57:00 31.66 kg/m2 [facility] Oxygen saturation in 2022-02-13 17:57:00 98 /min [facility] Arterial blood by [facility] Pulse oximetry Branch Systolic blood 2022-02-13 17:57:00 154 mm[Hg] Univer sity of pressure [facility] Diastolic blood 2022-02-13 17:57:00 99 mm[Hg] Unive rsity of [facility] Heart rate 2022-02-13 17:57:00 75 /min [facility] Body temperature 2022-02-13 17:57:[address] [facility] Respiratory rate 2022-02-13 17:57:00 22 /min [facility] Systolic blood 2021-09-20 13:30:00 143 mm[Hg] [facility] pressure Diastolic blood 2021-09-20 13:30:00 79 mm[Hg] [facility] pressure Heart rate 2021-09-20 13:30:00 65 /min [facility] Body temperature 2021-09-20 13:30:00 36.22 [facility] Respiratory rate 2021-09-20 13:30:00 18 /min [facility] Body height 2021-09-20 13:30:00 185.4 cm [facility] Body weight 2021-09-20 13:30:00 105.688 [facility] BMI 2021-09-20 13:30:00 30.74 kg/m2 [facility] Oxygen saturation in 2021-09-20 13:30:00 99 /min [facility] Arterial blood by Pulse oximetry Procedures Procedure Date / Time Performed Performing Clinician [facility] e CONSENT/REFUSAL FOR 2022-02-13 17:51:29 Doctor Unassigned, No Un [facility] DIAGNOSIS AND Name Medical Branch TREATMENT Encounters Start End Encounter Admission Attending Care Care Encounter Source Date/Time Date/Time Type Type Clinicians Facility Department ID 2022-08-13 Outpatient [facility] [id number] [place] 09:53:29 [id number] [facility] 2022-04-03 Outpatient [facility] [id number] [facility] 08:42:13 [id number] [facility] 2022-03-30 Outpatient [facility] [id number] [facility] 15:39:31 [id number] [facility] 2022-04-03 2022-04-03 Outpatient KIRILLDIANELYSPrachi [facility] [id number] [facility] 08:30:00 10:06:21 [facility] 2022-02-13 2022-02-13 Emergency X [facility] ERT [id number] Univers 12:58:00 15:31:00 GEOVANNA winkler [facility] [place] 2022-02-13 2022-02-13 Emergency Karley [facility] [id number] [facility] 12:58:00 15:31:00 [id number] [id number] [address] 2021-09-20 2021-09-20 Office Brandon [facility] [id number] [place] 08:30:00 09:38:[address] [id number] Health [id number] 2021-09-11 2021-09-11 Telephone CHRISTEL Taylor [id number] [place] 00:00:00 00:00:[address] [id number] Health [id number] Results This patient has no known results.
[2022-12-18] MEDS ORDERED: LIDOCAINE 1% MPF 5 ML VIAL ONE (08:35)
[2022-12-18] MEDS ORDERED: BUPIVACAINE 0.5% PF 10 ML VIAL ONE (08:35)
[2022-12-18] MEDS ORDERED: TDAP (DIPHTH,PERTUSS(ACELL),TET VAC) 0.5 ML VIAL IMVAC ONE (08:40)
[2022-12-18] MEDS ORDERED: PROMETHAZINE INJ 25 MG/ML AMP ONE (08:40)
--- NOTE | 2022-12-18 09:46 | RAD REPORT ---
EXAM DESCRIPTION: RAD - Hand Right 3 View - 12/18/2022 9:37 am CLINICAL HISTORY: PAIN COMPARISON: Hand Right 3 View dated 05/26/2017 FINDINGS: Fracture is present involving the base of the distal phalanx of the first finger. There is mild adjacent soft tissue swelling. The fracture appears to extend into the interphalangeal joint of the thumb.
--- NOTE | 2022-12-18 09:49 | ER ---
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 Coronavirus screen: At this time, the client does not indicate any symptoms associated with coronavirus-19. Ebola Screen: No symptoms or risks identified at this time. Initial Sepsis Screen: Does the patient meet any 2 criteria? No. Patient's initial sepsis screen is negative. Does the patient have a suspected source of infection? No. Patient's initial sepsis screen is negative. Risk Assessment: Do you want to hurt yourself or someone else? Patient reports no desire to harm self or others. Onset of symptoms was December 18, 2022 at 08:00. 08:07 Method Of Arrival: Ambulatory bp 08:07 Acuity: FAISAL 3 bp Triage Assessment: 08:09 General: Appears uncomfortable, Behavior is cooperative, appropriate for age, anxious. bp Pain: Complains of pain in right thumb. EENT: No deficits noted. Neuro: No deficits noted. Cardiovascular: No deficits noted. Respiratory: No deficits noted. GI: No signs and/or symptoms were reported involving the gastrointestinal system. : No signs and/or symptoms were reported regarding the genitourinary system. Derm: No deficits noted. Musculoskeletal: No deficits noted. Injury Description: Laceration sustained to right thumb is 2.6 to 7.5 cm long, was sustained less than 30 minutes ago. a small amount of bleeding noted at this time. Historical: - Allergies: 08: Wasps; bp - Home Meds: 08: atorvastatin 40 mg Oral tab 1 tab once daily [Active]; gabapentin Oral [Active]; bp lisinopril Oral [Active]; Plavix 75 mg Oral tab 1 tab once daily [Active]; Tramadol Oral as needed for Pain [Active]; - PMHx: 08:09 CVA x3; Hypercholesterolemia; Hypertension; TIA; bp - Immunization history:: Adult Immunizations up to date, Last tetanus immunization: unknown. - Social history:: Smoking status: unknown. Screenin:12 [facility] ED Fall Risk Assessment (Adult) History of falling in the last 3 months, bp including since admission No falls in past 3 months (0 pts). Abuse screen: Denies threats or abuse. Denies injuries from another. Nutritional screening: No deficits noted. Tuberculosis screening: No symptoms or risk factors identified. Assessment: 08:12 General: SEE TRIAGE NOTE. bp 08:37 General: Appears in no apparent distress. uncomfortable, Behavior is calm, cooperative, kc6 appropriate for age. Pain: Complains of pain in right hand and right thumb. Neuro: Level of Consciousness is awake, alert, obeys commands, Oriented to person, place, time, situation, Appropriate for age. Cardiovascular: Capillary refill < 3 seconds. Respiratory: Airway is patent Trachea midline Respiratory effort is even, unlabored, Respiratory pattern is regular, symmetrical. GI: Reports nausea, Patient currently denies diarrhea, vomiting. : No signs and/or symptoms were reported regarding the genitourinary system. EENT: No signs and/or symptoms were reported regarding the EENT system. Derm: No signs and/or symptoms reported regarding the dermatologic system. Skin is healthy with good turgor, Skin is pink, warm \T\ dry. Injury Description: Laceration sustained to right thumb was sustained 30-60 minutes ago. a small amount of bleeding noted at this time. 09:31 Reassessment: Patient appears in no apparent distress at this time. No changes from kc6 previously documented assessment. Patient and/or family updated on plan of care and expected duration. Pain level reassessed. Patient is alert, oriented x 3, equal unlabored respirations, skin warm/dry/pink. Patient denies pain at this time. Patient states feeling better. Patient states symptoms have improved. Vital Signs: 08:07 BP 148 / 102; Pulse 64; Resp 16; Temp 98.1; Pulse Ox 99% ; Weight 108.86 kg; Height 6 bp ft. 1 in. ; 09:33 BP 117 / 79; Pulse 62; Resp 17 S; Pulse Ox 100% on R/A; kc6 08:07 Body Mass Index 31.66 (108.86 kg, 185.42 cm) bp ED Course: 08:00 Patient arrived in ED. mr 08:01 Cindy Adams, [employer]GET[employer]-C [facility]. snw 08:01 Horace Murray MD is Attending Physician. snw 08:09 Triage completed. bp 08:12 Arm band placed on. bp 08:12 Patient has correct armband on for positive identification. Bed in low position. Call bp light in reach. Side rails up X2. Adult w/ patient. 08:15 Tiff Greer, RN is Primary Nurse. kc6 09:08 Cy wrap to right hand and right thumb. Wound care: to laceration located on right hand kc6 and right thumb was cleaned with soap and water, dressed with 4X4s, Patient tolerated well. 09:38 Hand Right 3 View XRAY In Process Unspecified. EDMS 10:04 Velcro wrist splint applied to right wrist. kc6 10:04 No provider procedures requiring assistance completed. Patient did not have IV access kc6 during this emergency room visit. Administered Medications: 08:28 Drug: Bupivacaine Infiltration (0.5 %) 1 vials Volume: 10 ml; Route: Infiltration; bp 09:13 Follow up: Response: No adverse reaction; Pain is decreased kc6 08:28 Drug: Lidocaine Infiltration (1 %) 1 vials Volume: 20 ml; Route: Infiltration; bp 09:13 Follow up: Response: No adverse reaction; Pain is decreased kc6 08:35 Drug: Boostrix Tdap IM 0.5 ml Route: IM; Site: left deltoid; kc6 09:14 Follow up: Response: No adverse reaction kc6 08:35 Drug: Promethazine IM 25 mg Route: IM; Site: right deltoid; kc6 09:14 Follow up: Response: No adverse reaction; Nausea is decreased kc6 09:56 Drug: Amoxicillin-Clavulanate PO 875 mg Route: PO; kc6 10:03 Follow up: Response: No adverse reaction kc6 Medication: 10:05 VIS not applicable for this client. kc6 Outcome: 09:49 Discharge ordered by . snw 10:04 Discharged to home ambulatory, with family. kc6 10:04 Condition: improved 10:04 Discharge instructions given to patient, Instructed on discharge instructions, follow up and referral plans. medication usage, wound care, Demonstrated understanding of instructions, follow-up care, medications, wound care, Prescriptions given X 3. 10:05 Patient left the ED. kc6 Signatures: Dispatcher [employer] EDMS Cindy Adams, VERONICA [employer]-Chika Post Brian, RN RN Tiff Biggs RN RN kc6
--- NOTE | 2022-12-18 09:50 | EDPHYS ---
Physician Documentation [facility] Name: Bartolo Phelps Age: 47 yrs Sex: Male : 1975 Arrival Date: 12/18/2022 Time: 07:59 Bed 13 Private MD: ED Physician Horace Murray HPI: 12/18 08:36 This 47 yrs old Male presents to ER via Ambulatory with complaints of Thumb snw laceration. 08:36 The patient or guardian reports a laceration, 2.5 cm(s). The complaints affect the snw right thumb. Context: The problem was sustained at home, resulted from a crush injury, by construction equipment, Ladder. Onset: The symptoms/episode began/occurred suddenly, just prior to arrival. Associated signs and symptoms: Pertinent positives: laceration to lateral thumb. Severity of symptoms: At their worst the symptoms were moderate. It is unknown whether or not the patient has had similar symptoms in the past. It is unknown whether or not the patient has recently seen a physician. pt on Plavix. Historical: - Allergies: 08:09 Wasps; bp - Home Meds: 08:09 atorvastatin 40 mg Oral tab 1 tab once daily [Active]; gabapentin Oral [Active]; bp lisinopril Oral [Active]; Plavix 75 mg Oral tab 1 tab once daily [Active]; Tramadol Oral as needed for Pain [Active]; - PMHx: 08:09 CVA x3; Hypercholesterolemia; Hypertension; TIA; bp - Immunization history:: Adult Immunizations up to date, Last tetanus immunization: unknown. - Social history:: Smoking status: unknown. ROS: 08:36 Constitutional: Negative for fever, chills, and weight loss, Eyes: Negative for injury, snw pain, redness, and discharge, ENT: Negative for injury, pain, and discharge, Neck: Negative for injury, pain, and swelling, Cardiovascular: Negative for chest pain, palpitations, and edema, Respiratory: Negative for shortness of breath, cough, wheezing, and pleuritic chest pain, Abdomen/GI: Negative for abdominal pain, nausea, vomiting, diarrhea, and constipation, Back: Negative for injury and pain, : Negative for injury, bleeding, discharge, and swelling, Neuro: Negative for headache, weakness, numbness, tingling, and seizure. 08:36 Skin: Positive for laceration(s), pallor, of the right thumb. Exam: 08:36 Constitutional: This is a well developed, well nourished patient who is awake, alert, snw and in no acute distress. Head/Face: Normocephalic, atraumatic. Eyes: Pupils equal round and reactive to light, extra-ocular motions intact. Lids and lashes normal. Conjunctiva and sclera are non-icteric and not injected. Cornea within normal limits. Periorbital areas with no swelling, redness, or edema. ENT: Nares patent. No nasal discharge, no septal abnormalities noted. Tympanic membranes are normal and external auditory canals are clear. Oropharynx with no redness, swelling, or masses, exudates, or evidence of obstruction, uvula midline. Mucous membranes moist. Neck: Trachea midline, no thyromegaly or masses palpated, and no cervical lymphadenopathy. Supple, full range of motion without nuchal rigidity, or vertebral point tenderness. No Meningismus. Chest/axilla: Normal chest wall appearance and motion. Nontender with no deformity. No lesions are appreciated. Cardiovascular: Regular rate and rhythm with a normal S1 and S2. No gallops, murmurs, or rubs. Normal PMI, no JVD. No pulse deficits. Respiratory: Lungs have equal breath sounds bilaterally, clear to auscultation and percussion. No rales, rhonchi or wheezes noted. No increased work of breathing, no retractions or nasal flaring. Abdomen/GI: Soft, non-tender, with normal bowel sounds. No distension or tympany. No guarding or rebound. No evidence of tenderness throughout. Back: No spinal tenderness. No costovertebral tenderness. Full range of motion. MS/ Extremity: Pulses equal, no cyanosis. Neurovascular intact. Full, normal range of motion. Neuro: Awake and alert, GCS 15, oriented to person, place, time, and situation. Cranial nerves II-XII grossly intact. Motor strength 5/5 in all extremities. Sensory grossly intact. Cerebellar exam normal. Normal gait. Psych: Awake, alert, with orientation to person, place and time. Behavior, mood, and affect are within normal limits. 08:36 Skin: Appearance: normal except for affected area, Color: pale, injury, laceration(s), the wound is approximately 3 cm(s), with a depth of 1 cm(s), of the right thumb. Vital Signs: 08:07 BP 148 / 102; Pulse 64; Resp 16; Temp 98.1; Pulse Ox 99% ; Weight 108.86 kg; Height 6 bp ft. 1 in. ; 09:33 BP 117 / 79; Pulse 62; Resp 17 S; Pulse Ox 100% on R/A; kc6 08:07 Body Mass Index 31.66 (108.86 kg, 185.42 cm) bp Laceration: 09:10 Wound Repair of 3cm ( 1.2in ) subcutaneous laceration to right thumb. Hemostasis snw noted.. Distal neuro/vascular/tendon intact. Anesthesia: Digital block administered with 3 mls of 1% lidocaine, 3 mls of 0.5% marcaine. Wound prep: Moderate cleansing with hibiclenz, Wound explored moderately. Skin closed with 3 4-0 Prolene using simple sutures and sterile technique. Dressed with non-adherent dressing. Patient tolerated well. MDM: 08:08 Patient medically screened. rn 09:11 Differential diagnosis: open fracture, closed fracture, laceration. Data reviewed: snw vital signs, nurses notes, radiologic studies, plain films. I considered the following discharge prescriptions or medication management in the emergency department Medications were administered in the Emergency Department. See MAR. Counseling: I had a detailed discussion with the patient and/or guardian regarding: the historical points, exam findings, and any diagnostic results supporting the discharge/admit diagnosis, the presence of at least one elevated blood pressure reading (>120/80) during this emergency department visit, radiology results, the need for outpatient follow up, for definitive care, to return to the emergency department if symptoms worsen or persist or if there are any questions or concerns that arise at home. Response to treatment: the patient's symptoms have markedly improved after treatment. Special discussion: I have referred the patient to see his PCP for further evaluation of high blood pressure. I discussed in detail with the patient the higher chance of wound infection based on his presenting history. Based on the history and exam findings, there is no indication for further emergent testing or inpatient evaluation. I discussed with the patient/guardian the need to see the primary care provider for further evaluation of the symptoms. 09:35 Independent interpretation of the following test(s) in the Emergency Department X-Ray: snw My interpretation is right distal phalanx of thumb and potential medial phalanx intra-articular fx. 12/18 09:08 Order name: Hand Right 3 View XRAY; Complete Time: 09:46 snw 12/18 08:10 Order name: Dressing - Wound; Complete Time: 08:35 snw 12/18 08:10 Order name: Gloves, Sterile; Complete Time: 08:35 snw 12/18 08:10 Order name: Setup Suture Tray; Complete Time: 08:35 snw 12/18 09:08 Order name: Wound Care: Please cleanse hand with soap and water; Complete Time: 09:20 snw 12/18 09:40 Order name: Thumb Spica Splint; Complete Time: 09:56 snw Administered Medications: 08:28 Drug: Bupivacaine Infiltration (0.5 %) 1 vials Volume: 10 ml; Route: Infiltration; bp 09:13 Follow up: Response: No adverse reaction; Pain is decreased kc6 08:28 Drug: Lidocaine Infiltration (1 %) 1 vials Volume: 20 ml; Route: Infiltration; bp 09:13 Follow up: Response: No adverse reaction; Pain is decreased kc6 08:35 Drug: Boostrix Tdap IM 0.5 ml Route: IM; Site: left deltoid; kc6 09:14 Follow up: Response: No adverse reaction kc6 08:35 Drug: Promethazine IM 25 mg Route: IM; Site: right deltoid; kc6 09:14 Follow up: Response: No adverse reaction; Nausea is decreased kc6 09:56 Drug: Amoxicillin-Clavulanate PO 875 mg Route: PO; kc6 10:03 Follow up: Response: No adverse reaction kc6 Disposition: 10:06 Co-signature as Attending Physician, Horace Murray MD I reviewed the patient's care rn provided by the Advanced Practice Provider and agree with the diagnosis and treatment plan. Disposition Summary: 12/18/22 09:49 Discharge Ordered Location: Home snw Condition: Stable snw Diagnosis - Laceration without foreign body of right thumb without damage to nail, initial snw encounter - NONDISPLACED FRACTURE OF RIGHT DISTAL THUMB WITH EXTENSION INTO INTERPHALANGEAL snw JOINT Followup: snw - With: Emergency Department - When: 10 - 14 days - Reason: Staple/Suture removal Followup: snw - With: Private Physician - When: As needed - Reason: Discharge Instructions: - Discharge Summary Sheet snw - Cast or Splint Care, Adult snw - Laceration Care, Adult snw - Thumb Fracture snw - Hand Washing snw - Hand Pain snw Forms: - Medication Reconciliation Form snw - Thank You Letter snw - Antibiotic Education snw - Prescription Opioid Use snw - Patient Portal Instructions snw Prescriptions: - mupirocin 2 % Topical ointment - apply 1 application by TOPICAL route 2 times per day; 15 gram; Refills: 0, snw Product Selection Permitted - Augmentin 875-125 mg Oral Tablet - take 1 tablet by ORAL route every 12 hours for 10 days; 20 tablet; Refills: 0, snw Product Selection Permitted - Tramadol 50 mg Oral Tablet - take 1 tablet by ORAL route every 8 hours as needed; 12 tablet; Refills: 0, snw Product Selection Permitted Signatures: Dispatcher [employer] EDMS Cindy Adams, DUMP GROUNDS CHECKER-C DU[employer] GROUNDS CHECKER-Csnw Horace Murray MD MD rn Peltier, Brian RN RN Tiff Biggs RN RN kc6
[2022-12-18] MEDS ORDERED: AMOX/K CLAV 875 MG TAB ONE (09:51)
[2022-12-18 10:11] VITALS: TEMP 98.1
[2022-12-18 10:12] VITALS: BP 117/79; O2SAT 100
== END 2022-12-18 10:05 | disposition home or self-care (01) ==
LOC: ER 07:59
PROC: 0HQFXZZ Repair Right Hand Skin, External Approach (ICD-10-PCS; principal; 2022-12-18)
DX: S62.524A Nondisplaced fracture of distal phalanx of right thumb, initial encounter for closed fracture (principal)
CPT/HCPCS: 96372; 99284; J2001; J2550